=== PATIENT | male | born 1980 | race Caucasian/White ===

== ENCOUNTER → 2018-01-03 08:04 | Outpatient (CLI) | payer BC, SELFPAY ==
[2018-01-03 09:49] LABS: Hematocrit 44.8 % (40-54); Hemoglobin 14.5 g/dl (13.0-16.5); Mean Corp Hgb Conc 32.4 g/gl (32-36); Mean Corpuscular Hgb 28.9 pg (27.0-32.0); Mean Corpuscular Volume 89.4 fL (80-94); Mean Platelet Vol. 10.5 fl (6.2-12.0); Platelet Count 284 K/mm3 (150-450); RBC Distribution Width CV 13.2 % (11.6-14.6); Red Blood Count 5.01 M/mm3 (4.6-6.2); Scan Indicated on CBC? Y/N NO; White Blood Count 6.4 K/mm3 (4.4-11.0)
[2018-01-03 10:11] LABS: Microalbumin:Creatinine Ratio 5.7 mg/g CRE (<30 mg/g CRE)
[2018-01-03 10:24] LABS: AST(SGOT) 27 U/L (15-37); Alanine Aminotransfer ALT/SGPT 52 U/L (16-61); Albumin, Serum 3.7 g/dL (3.2-5.0); Alkaline Phosphatase 77 U/L (45-117); Anion Gap 9 (5-15); BUN 14 mg/dL (7-18); BUN/Creat Ratio 14.4 RATIO (10-20); Calcium,Total 8.7 mg/dL (8.5-10.1); Chloride 108 mmol/L (98-107); Creatinine, Serum 0.97 mg/dL (0.70-1.30); EST Glomerular Filtration Rate 91 mL/min (>60); Est Glom Filt Rate - Afr Amer 111 mL/min (>60); Globulin 3.7 g/dL (2.2-4.2); Glucose 96 mg/dL (74-106); Protein, Total 7.4 g/dL (6.4-8.2); Sodium Level 144 mmol/L (136-145); Thyroid Stim Hormone (TSH) 1.65 uIU/mL (0.358-3.74)
== END ==
PROVIDERS: Family Provider Preventive Medicine Occupational Medicine; PCP Preventive Medicine Occupational Medicine
DX: I10 Essential (primary) hypertension (principal)
CPT/HCPCS: 36415; 80053; 82043; 82570; 84443; 85027

== ENCOUNTER → 2019-04-08 08:28 | Outpatient (CLI) | payer BC, SELFPAY ==
[2019-04-08 08:21] VITALS: BMI 34.9
--- NOTE | 2019-04-08 08:29 | RAD_ITS ---
STUDY: X-RAY - RIGHT KNEE REASON FOR EXAM: Chronic pain. TECHNIQUE: 4 view(s) of the knee. COMPARISON: None. FINDINGS: Normal visualized distal femur. There are 2 orthopedic screws in the proximal tibial diaphysis and intramedullary scarring from previous screws in the proximal tibial diametaphysis. Normal proximal tibiofibular articulation. Normal medial femorotibial compartment. Normal lateral femorotibial compartment. Normal patellofemoral articulation. The soft tissue structures are unremarkable. RAD/Knee 4 or More Views IMPRESSION: Postoperative changes of the proximal tibia. Otherwise, unremarkable x-ray examination of the right knee. Electronically Signed: Neri Garcia MD at 9:21 EST Tel , Service support ,
--- NOTE | 2019-04-08 08:29 | RAD_ITS ---
STUDY: X-RAY - LEFT KNEE REASON FOR EXAM: Chronic pain. TECHNIQUE: 4 view(s) of the knee. COMPARISON: None. FINDINGS: Normal visualized distal femur. Normal visualized proximal tibia and fibula. Normal proximal tibiofibular articulation. Normal medial femorotibial compartment. Normal lateral femorotibial compartment. There is very mild lateral subluxation of the patella. The soft tissue structures are unremarkable. RAD/Knee 4 or More Views IMPRESSION: Very mild lateral subluxation of the patella. Otherwise, unremarkable x-ray examination of the left knee. Electronically Signed: Neri Garcia MD at 9:03 EST Tel , Service support ,
== END ==
PROVIDERS: Family Provider Preventive Medicine Occupational Medicine; PCP Preventive Medicine Occupational Medicine; Referring Provider Orthopaedic Surgery; Visit Provider Orthopaedic Surgery
DX: M25.561 Pain in right knee (principal); M25.562 Pain in left knee
CPT/HCPCS: 73564

== ENCOUNTER → 2019-04-26 16:42 | Outpatient (CLI) | payer BC, SELFPAY ==
[2019-04-08 08:21] VITALS: BMI 34.9
--- NOTE | 2019-04-26 16:43 | MRI_ITS ---
STUDY: MRI RIGHT KNEE REASON FOR EXAM: Intermittent knee pain for 14 years from trauma in 2006, prior surgery. TECHNIQUE: Standardized fat and water weighted pulse sequences were obtained in all 3 orthogonal planes. COMPARISON: Radiographs 04/08/2019. FINDINGS: Normal medial meniscus. Normal hyaline cartilage of the medial femorotibial compartment. Normal medial femoral condyle and tibial plateau. Normal medial collateral ligamentous complex (MCL). Normal distal semimembranosus, gracilis and semitendinosus tendons. Normal lateral meniscus. Normal hyaline cartilage of the lateral femorotibial compartment. Normal lateral femoral condyle and tibial plateau. Normal proximal tibiofibular articulation. Normal lateral collateral (fibular) ligament. Normal popliteus tendon. Normal biceps femoris tendon. Normal anterior cruciate ligament (ACL). Normal posterior cruciate ligament (PCL). Normal congruent patellofemoral articulation. There is low to intermediate grade chondromalacia of the medial patellar facet (T2 axial images 12, 13). Normal medial and lateral patellar retinaculum. Normal quadriceps tendon. There are postoperative changes of the patellar tendon from patellar realignment. There is postoperative scarring in Hoffa's fat pad. There is a small joint effusion. There is a thin medial patellar plica. There is postoperative scarring in the subcutis adipose space anterior to the proximal tibia. MRI/Lower Ext Joint Only (Routine) IMPRESSION: Chondromalacia patellae. Status post patellar realignment surgery. Small joint effusion. No demonstrated meniscal or ligamentous injury. Electronically Signed: Neri Garcia MD at 9:20 EST Tel , Service support ,
== END ==
PROVIDERS: Family Provider Preventive Medicine Occupational Medicine; PCP Preventive Medicine Occupational Medicine; Referring Provider Orthopaedic Surgery; Visit Provider Orthopaedic Surgery
DX: S83.206A Unspecified tear of unspecified meniscus, current injury, right knee, initial encounter (principal); M22.41 Chondromalacia patellae, right knee
CPT/HCPCS: 73721

== ENCOUNTER 2019-04-30 03:15 | Emergency (ER) | payer BC, SELFPAY ==
[2019-04-08 08:21] VITALS: BMI 34.9
[2019-04-30 03:16] VITALS: BP 97/63; PULSE 54; RESP 19; TEMP 36.8; O2SAT 92; BMI 37.3
--- NOTE | 2019-04-30 03:19 | EKG12_ITS ---
Test Reason : SYNCOPE Blood Pressure : / mmHG Vent. Rate : 053 BPM Atrial Rate : 053 BPM P-R Int : 162 ms QRS Dur : 106 ms QT Int : 426 ms P-R-T Axes : 030 029 010 degrees QTc Int : 399 ms Sinus bradycardia Otherwise normal ECG Confirmed by MYLENE PEREA, TONY ([id number]), editor index MAGO BROWN ([id number]) on 05/03/2019 11:27:18 AM Referred By: Natty Rob Confirmed By:TONY CHAKRABORTY MD
[2019-04-30] MEDS: 0.9% Normal Saline 1,000 ML 1000 ML IV (03:26)
[2019-04-30 03:27] LABS: Absolute Lymphocyte Count 2.82 X10^3/uL (0.83-4.51); Absolute Neutrophil Count 4.7 X10^3/uL (2.0-7.7); Basophil# 0.06 X10^3/uL; Basophil% 0.7 % (0-1); Eosinophil# 0.24 X10^3/uL; Eosinophils% 2.7 % (0-5); Hematocrit 45.2 % (40-54); Hemoglobin 15.1 g/dL (13.0-16.5); Lymphocyte # 2.82 X10^3/ul (4.0); Lymphocyte % 32.3 % (19-41); Mean Corp Hgb Conc 33.4 g/dL (32-36); Mean Corpuscular Hgb 29.4 pg (27.0-32.0); Mean Corpuscular Volume 88.1 fL (80-94); Mean Platelet Vol. 9.8 fl (6.2-12.0); Monocyte% 10.3 % (0-10); NRBC Flagged by Analyzer 0 % (0-5); Neutrophil # 4.66 X10^3/uL (2.7-7.7); Neutrophil % 53.4 % (47-70); Platelet Count 286 K/mm3 (150-450); RBC Distribution Width SD 42.2 fl (35.1-43.9); Red Blood Count 5.13 M/mm3 (4.6-6.2); White Blood Count 8.7 K/mm3 (4.4-11.0)
[2019-04-30 03:36] LABS: Bedside Glucose 107 mg/dL (70-110)
--- NOTE | 2019-04-30 03:38 | ED.VIS.GEN ---
History of Present Illness Chief Complaint: Syncope Informant: Patient Onset: Today Narrative: Patient was present in the emergency room with his child who is being seen as a patient. Patient presented to the nursing does state that he did not feel well. He appeared pale per nursing report. They followed him back into his child's room when patient had a syncopal episode. They estimate he was unconscious for approximately 10 seconds. Patient states he remembers feeling very hot and cold at the same time. He broke out in a sweat. He denies having chest pain or palpitations. Patient was placed on a cot and taken to room 1. Nursing staff tells me when they first hooked him up to the monitor his heart rate was in the 30s. Patient states he has had this happen once before, before he got his gallbladder out and it was associated with pain. He has not had recent chest pain or lightheadedness. - Past Medical History (1) Hypertension Status: Chronic (2) ADHD (attention deficit hyperactivity disorder) Status: Chronic Past Medical History - Allergies and Home Meds Allergies/Adverse Reactions: Allergies amoxicillin Allergy (Verified 04/30/19 03:18) swelling hands, hard to breath fentanyl Allergy (Verified 04/30/19 03:18) jittery, anxious Primary Care Physician: Dutch Orr DO [Primary Care Provider] - Prior records reviewed: Yes Surgical History: cholecystectomy Lives: With Family Smoking Status: Never smoker - Family History Maternal Family History: Reports: No pertinent history Paternal Family History: Reports: No pertinent history Review of Systems General: Denies: Chills, Fever Eyes: Denies: Visual changes - bilaterally ENT: Denies: Bilateral ear pain Cardiovascular: Denies: Chest pain, Palpitations Respiratory: Denies: Dyspnea, Cough Gastrointestinal: Denies: Abdominal pain, Nausea, Vomiting, Diarrhea Musculoskeletal: Denies: Swelling, Extremity Pain Skin: Denies: Rash Neurological: Denies: Headache, Weakness Hematologic: Denies: Easy bruising Allergy: Denies: Uticaria Physical Exam Vital Signs/Narrative: Vital Signs Temp Pulse Resp BP Pulse Ox 04/30/19 03:16 98.2 F 54 L 19 H 97/63 92 Inital Vital Signs reviewed: Yes General: Well nourished, Well developed Head: Normocephalic ENT: Moist mucous membranes Cardiovascular: Bradycardia Respiratory: No distress, CTA bilaterally Abdomen: Soft, Nontender, Hypoactive bowel sounds Extremities: Nontender Skin: Diaphoresis, Pallor Neurological: Alert, Oriented x3 Psychological: Normal affect Diagnostic/Tx/Re-eval Laboratory Results 04/30/19 04/30/19 04/30/19 03:20 03:20 03:29 WBC 8.7 RBC 5.13 Hgb 15.1 Hct 45.2 MCV 88.1 MCH 29.4 MCHC 33.4 RDW Std Deviation 42.2 RDW Coeff of Graciela 13.0 Plt Count 286 MPV 9.8 Immature Gran % (Auto) 0.600 Neut % (Auto) 53.4 Lymph % (Auto) 32.3 [place] % (Auto) 10.3 H Eos % (Auto) 2.7 Baso % (Auto) 0.7 Absolute Neuts (auto) 4.7 Absolute Lymphs (auto) 2.82 Nucleated RBC % 0 Sodium 139 Potassium 3.5 Chloride 105 Carbon Dioxide 26.0 Anion Gap 8 BUN 22 H Creatinine 1.07 Estim Creat Clear Calc 94.76 Est GFR (MDRD) Af Amer 98 Est GFR (MDRD) Non-Af 81 BUN/Creatinine Ratio 20.6 H Glucose 118 H Calcium 8.7 POC Glucose 107 - Medical Decision Making Patient was given a liter of IV fluids here. Blood pressure has increased into the 130s systolic. Patient remains bradycardic with heart rate in the 50s. Patient's color is much improved. He is able to get up and ambulate in the department without difficulty. At this time patient be discharged with family. His symptoms are consistent with vasovagal syncope. He is encouraged to return for worsening symptoms or concerns. He is instructed to follow-up with his physician within the next week. ED Disposition - Plan for ED Patient: Disposition: Home or Assisted Living Diagnosis: Vasovagal syncope Instructions: SYNCOPE, Vasovagal Referrals: Dutch Orr DO [Primary Care Provider] - As soon as possible
[2019-04-30 03:39] LABS: Anion Gap 8 (5-15); BUN 22 mg/dL (7-18); BUN/Creat Ratio 20.6 RATIO (10-20); Calcium,Total 8.7 mg/dL (8.5-10.1); Chloride 105 mmol/L (98-107); Creatinine, Serum 1.07 mg/dL (0.70-1.30); EST Glomerular Filtration Rate 81 mL/min (>60); Est Glom Filt Rate - Afr Amer 98 mL/min (>60); Estimated Creatinine Clearance 94.76 ml/min; Glucose 118 mg/dL (74-106); Potassium 3.5 mmol/L (3.5-5.1); Sodium Level 139 mmol/L (136-145)
[2019-04-30 05:04] VITALS: BP 143/93; PULSE 52; RESP 16; O2SAT 95
== END 2019-04-30 05:10 | disposition home or self-care (01) ==
PROVIDERS: Emergency Provider Emergency Medicine; Family Provider Preventive Medicine Occupational Medicine; PCP Preventive Medicine Occupational Medicine
DX: R55 Syncope and collapse (principal); I10 Essential (primary) hypertension; F90.9 Attention-deficit hyperactivity disorder, unspecified type; Z79.899 Other long term (current) drug therapy
CPT/HCPCS: 80048; 82962; 85025; 93005; 96360; 96361; 99285; J7030; A4216

== ENCOUNTER 2019-08-11 15:22 | Observation (INO) | payer BC, SELFPAY ==
[2019-07-20 08:22] VITALS: BMI 37.3
--- NOTE | 2019-07-20 08:47 | HP_ITS ---
I have re-examined the patient. There are no clinical changes since date of exam. Intake Vital Signs 07/20/19 BMI 37.3 Intake Visit Reasons: RIGHT KNEE Is patient in pain?: Yes Allergies amoxicillin Allergy (Verified 07/20/19 08:21) swelling hands, hard to breath fentanyl Allergy (Verified 07/20/19 08:21) jittery, anxious venom-honey bee Allergy (Verified 07/20/19 08:21) Anaphylaxis Medications Lisdexamfetamine Dimesylate [Vyvanse] 60 mg PO DAILY 07/06/16 [History Confirmed 07/20/19] Amlodipine [Norvasc] 10 mg PO DAILY 04/30/19 [History Confirmed 07/20/19] Bisoprolol/Hydrochlorothiazide [Bisoprolol-Hctz 2.5-6.25 mg Tb] 1 ea PO DAILY 04/30/19 [History Confirmed 07/20/19] Cholecalciferol (VIT D3) [Vitamin D] 1,000 unit PO DAILY 04/30/19 [History Confirmed 07/20/19] Loratadine [Claritin] 10 mg PO DAILY 04/30/19 [History Confirmed 07/20/19] Meloxicam 15 mg PO DAILY 04/30/19 [History Confirmed 07/20/19] PFSH Social History (Updated 07/20/19 @ 10:[address] Natty Rob DO) Smoking Status: Never smoker HPI RIGHT KNEE: Surgical H&P: Yes Details: Parts of this documentation were recorded by a scribe, this documentation accurately reflects the service provided and the decisions made by me, Dr. Natty Rob DO 07/20/1918. EITAN VOGEL is a 39 year old M here today for right knee pain. He continues to have pain over his anterior knee. Patient has popping and swelling. Patient has knee instability. He denies any locking. Patient had an injection on 05/13/19 which was helpful for a few weeks. He has a knee brace which he wears while wrestling. Denies numbness, tingling or other associated symptoms. He had an MRI which is here for review. Patient would like to discuss his next options. ROS Musc Reports joint pain, Reports joint swelling Skin/Breast Reports system reviewed and no additional complaints, except as docu Neuro Yes system reviewed and no additional complaints, except as docu No rales rhonchi wheezing, no abdominal pain, no audible bruits Positive patellar apprehension lateral tilting painful flexion at extension underneath the kneecap localized Assessment & Plan Problems 1. 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 Reviewed the post op restrictions of nwb for 6wks Reviewed the pre-operative plans with the patient. Risks and benefits of the procedure were fully explained, including but not limited to infection, neurovascular injury, continued pain, arthritis, stiffness, need for further surgery, re-injury, DVT, PE, general risks of anesthesia, and loss of limb or life. The patient understands all the risks and does wish to proceed with written consent. Follow up post op or sooner if pain, swelling, numbness or associated symptoms, or concerns develop. All questions answered. Patient in agreement of plan. 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
[2019-08-11] VITALS (12 sets, daily range): BP systolic 123–147; BP diastolic 72–86; PULSE 49–80; RESP 16–18; TEMP 36.3–36.9; O2SAT 89–97; BMI 36.4
[2019-08-11] MEDS: Lactated Ringers 1,000 ML 100 ML IV ×2 (09:43→16:06)
--- NOTE | 2019-08-11 10:45 | FORE_PTH ---
PATIENT: EITAN VOGEL LOC: MS3 U#:[id number] AGE/SX: 39/M ROOM: GA312 RE08/11/[address]: Dr. Natty Rob DO : 1980 BED: 1 DIS: 08/12/2019 SPEC #: [id number] RECD: 08/11/19 16:19 STATUS: QUINN JACQUELINE #: [id number] MECCA: 08/11/19 10:[address]: Natty Rob DEPT: SURGICAL PATHOLOGY RECD BY: Steve Barrientos ENTERED: 08/12/19 06:59 SP TYPE: FOREIGN B GENEVA DR: Dr. 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 LEIGH:[place] 08/12/19 GROSS DESCRIPTION Received in fixative is one container labeled with the patient's name and designated partial screw from right knee. The specimen consists of a portion of screw measuring 0.7 cm in length and 0.2 cm in diameter. A round head is noted on the top which measures 0.5 cm in diameter. A round depression is also noted on the top of the screw. The specimen is for gross identification only. / LEIGH:[place] 08/12/19 CPT: 02976
--- NOTE | 2019-08-11 12:00 | RAD_ITS ---
STUDY: X-RAY - RIGHT KNEE REASON FOR EXAM: Male, 39 years old. PAIN, TIBIAL TUBERCLE OSTEOTOMY, ARTHROSCOPY TECHNIQUE: 2 Intraoperative view(s) of the knee. Intraoperative fluoroscopy utilized for 23.04 seconds. COMPARISON: None. FINDINGS: Intraoperative fluoroscopy utilized during tibial tubercle osteotomy. RAD/Knee 1 or 2 Views IMPRESSION: Intraoperative fluoroscopy. Electronically Signed: Apolinar Ram MD at 23:41 EDT , Service support ,
--- NOTE | 2019-08-11 12:09 | DCINST_ITS ---
Discharge Diet: No Restrictions - cpm 0-30 up to 6 hours daily, may advance to 45degrees as tolerated, follow up on friday with [facility] for dressing change and brace adjustment, nwb right leg, crutches with brace locked in extension, call with concerns Discharge Activity: May Not Drive May shower in (days): 1 Ice area for (Minutes): 20 - Every hour while awake. Weight Bearing Status: Weight bearing as tolerated Keep extremity elevated above heart level: Operative Extremity Call your doctor if your incision/area has: Continuous Slow Oozing, Sudden Increased Bleeding, Increased Pain/ Swelling, Increased Redness, Foul Smelling Discharge Call your doctor if you observe: Fever of 101 or Higher, Coldness, Increased Pain, Numbness or Tingling, Change in Color, Calf discomfort Allergies/Adverse Reactions: Allergies amoxicillin Allergy (Verified 08/04/19 11:19) swelling hands, hard to breath fentanyl Allergy (Verified 08/04/19 11:19) jittery, anxious venom-honey bee Allergy (Verified 08/04/19 11:19) Anaphylaxis Medications to take at Discharge Lisdexamfetamine Dimesylate [Vyvanse] 60 mg PO DAILY 07/06/16 Amlodipine [Norvasc] 10 mg PO DAILY 04/30/19 Bisoprolol/Hydrochlorothiazide [Bisoprolol-Hctz 2.5-6.25 mg Tb] 1 ea PO QHS 04/30/19 Cholecalciferol (VIT D3) [Vitamin D] 2,000 unit PO DAILY 04/30/19 Loratadine [Claritin] 10 mg PO DAILY 04/30/19 Oxycodone HCl/Acetaminophen [Percocet 5/325] 1 - 2 tab PO Q6H PRN PRN 5 Days #28 tab 08/11/19 The following prescriptions were given: Oxycodone HCl/Acetaminophen [Percocet 5/325] 1 - 2 tab PO Q6H PRN PRN 5 Days #28 tab PRN Reason: Pain Transmission Status: Sent to [facility] Primary Care Physician: Dutch Orr DO [Primary Care Provider] - Test Results: Test results from this visit will be discussed in further detail at your follow- up appointment, if applicable. Please Follow Up With: Natty Rob DO - [phone]
--- NOTE | 2019-08-11 12:09 | OP.PCM_ITS ---
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 Patient has an MRI confirms chondromalacia of his patella. Risk benefits and alternatives were discussed with patient. Risk include but not limited to blood loss, blood clot, infection, neurovascular, failure procedure, loss of life and loss of limb. Patient is aware would like proceed with right knee arthroscopy chondroplasty possible to tibial tubercle osteotomy repair as indicated Operative note Patient seen and examined preoperative holding area. Right knee was marked. Patient brought to the operating room placed supine on the operating table. Signed, anesthesia, and antibiotics were administered. The right leg was prepped and draped in usual sterile fashion with a tourniquet around her upper thigh to his upper thigh. All bony promises well-padded SCDs placed on his contralateral limb. Timeout was performed. We marked our incisions for anterior lateral and anterior medial plate for placement as well as our typical tibial tubercle osteotomy. The right leg was then elevate exsanguinated tourniquet was raised her pressure of 275 torr. Timeout was performed. We then created an anterior lateral portal and began our diagnostic arthroscopy. We c reated an anterior medial portal under direct visualization. The medial femoral condyle medial tibial plateau lateral femoral condyle lateral tibial plateau both the medial and lateral meniscus were both in intact and stable probing. The ACL and PCL were present within the notch. There were grade 2 changes on the medial and central facets of the patella and more distal more inferiorly and the patella did track quite laterally over 25 to 30% was overhanging laterally off of the lateral femoral condyle. We then performed a lateral release under standard technique and then deflated the did decrease the irrigation in order to coagulate coagulate any bleeders which there was which we did at that time. We then moved our open tibial tubercle osteotomy. We then made about a 7 cm cyst centimeter incision over the typical tibial tubercle extending from the inferior pole of the patella about a centimeter and then extending it distally. We then dissected down through scar tissue down to the patella tendon found the patella tendon on either border dissected down to its insertion on the tibial tubercle and then released an elevated tibial tubercle on the anterior lateral as well as anterior medial compartments of sharply off of the bone combination of an ablator and a Paz. We then marked out our cut angle with Arthrex system breakable guidewires. We then used a 10 oscillating saw to perform our osteotomy. We are unable to complete it distally as there was a screw in the way from his previous surgery this was removed and with a combination of an osteotome and a screw removal set. We sent the screw to pathology for further evaluation. We then were able to move the tibial tubercle both anteriorly and medially. We then placed 245 partially-threaded screws after drilled properly with a guidewire and measured appropriately. We then irrigated the area with copious nonsterile saline we placed Lennie quickset calcium cement into the defect created lateral please note that we moved laterally we moved it from lateral to medial about a centimeter and about a centimeter anteriorly. Quite pleased with the result. Again we then placed the cement after irrigated with copious muscle sterile saline we closed loosely closed loosely the anterolateral anteromedial compartments. We then let the tourniquet down to ensure there is no further bleeding prior to closing the compartments was there was no acute bleeding. We then coagulated bleeders that we did see subcutaneously. The skin was closed subcuticular with 2-0 Vicryl and the skin with 4-0 interrupted nylons the portal s were closed with nylon stitches. Sterile dressings were applied patient was placed in a Ruiz wrap from the toes to his leg. And a Garrett stocking was placed on his lower extremity are in his bed to be placed on tomorrow. Right lower extremity was neurovascular intact Called postoperative To be admitted for observation to for antibiotics and to evaluate and watch for compartment syndrome and for pain medication for pain meds Call with increased pain numbness tingling or other issues arise We will discharge tomorrow CPM as tolerated Sherri disclaimer
[2019-08-11] MEDS: Mupirocin Ointment 22gm Tube 1 APPLIC (14:56)
[2019-08-11] MEDS: Epinephrine (1 mg/ml) 1 MG/ML VIAL (14:56)
[2019-08-11] MEDS: HYDROcodone Bitartrate/Apap 5/325 Tablet PO (19:55)
[2019-08-12 01:30] VITALS: BP 143/79; PULSE 62; RESP 18; TEMP 36.5; O2SAT 94
[2019-08-12] MEDS: HYDROcodone Bitartrate/Apap 5/325 Tablet PO ×2 (01:54→09:13)
[2019-08-12] MEDS: Lactated Ringers 1,000 ML 100 ML IV (02:43)
[2019-08-12 06:00] VITALS: BP 133/70; PULSE 55; RESP 18; TEMP 36.6; O2SAT 94
[2019-08-12 07:45] VITALS: O2SAT 94
[2019-08-12 10:13] VITALS: BP 142/70; PULSE 63; RESP 18; TEMP 36.9; O2SAT 92
--- NOTE | 2019-08-12 11:20 | CASEMGMT ---
NICOLASA SWANSON Face to Face with patient for initial transition planning/care coordination assessment. NICOLASA SWANSON introduced self and role at [facility]. Patient lying in bed, alert and oriented, at bedside. Patient willing to participate in assessment and is able to answer all questions appropriately. Care providers, pharmacy, and demographics verified. Patient wishes to discharge home, denies need for home health at this time. Patient states he has no further needs or concerns at this time. CM to follow for discharge planning needs that may arise. PCP: Dom[facility] Specialists: [facility] Pharmacy: [facility] Insurance: [place] Prescription Benefit: yes Living Will/HPOA: none LNOK: Living Arrangements: Patient lives with in 2 story home, railing to second floor for bedroom. Patient independent prior to surgery. Transportation: DME/HHC: Patient has crutches, will need walker. NICOLASA SWANSON called surgeon office and requested script for front wheeled walker. Patient and requesting script and will fill at [facility] on their own. Script received and given to patient. Disposition Plan: Patient to discharge home with family support and follow-up plans in place. Sanna DELAROSAN, RN, CM
--- NOTE | 2019-08-13 10:46 | PN.ORTHO_ITS ---
Subjective: eval done 08/11 patient seen and examined at [facility]. no complaints other than slight numbness of left le, but able to move knee, ankle, foot, toes, an life leg /straight leg raise- no calf pain, sob, cp, fever, chills or other constitutional symptoms. tolerated POs, on antibiotics, up wiht assistance, currently in CPM. - Physical Exam Vitals/I&O's: Vital Signs Temp Pulse Resp BP Pulse Ox 98.5 F 63 18 142/70 H 92 08/12/19 10:13 08/12/19 10:13 08/12/19 10:13 08/12/19 10:13 08/12/19 10:13 Oxygen Flow Rate (L/min) 2 Oxygen Delivery Method Room Air Weight: 246 lb 14.684 oz Body Mass Index (BMI) 36.4 Finger Stick Blood Glucose 107 Intake and Output for Last 24 Hours 08/11/19 08/12/19 08/13/19 23:59 23:59 23:59 Intake Total 2551.67 / 2551.67 1547.33 / 1547.33 Output Total 675 / 675 1075 / 1075 Balance 1876.67 / 1876.67 472.33 / 472.33 General: Alert, Oriented x3, Cooperative HEENT: Atraumatic, PERRLA, EOMI, Normocephalic Neck: Supple, No JVD, Negative Carotid Bruits Lungs: Clear to auscultation, Normal air movement Cardiovascular: Regular rate, No murmurs Abdomen: Bowel Sounds Present, Soft, Non Tender Extremities: No edema, Capillary Refill Less than 3 Seconds Skin: No rashes, No breakdown Musculoskeletal: Tenderness - at incision site, no calf pain, neg homans, sensation intact to pinching, arom of toes, ankle, knee and hip intact Neurological: Cranial nerves II-XII grossly intact Psych/Mental Status: Normal Affect, Appropriate Medical Necessity - Tobacco Use Smoking Status: Never smoker Tobacco Use: Non-smoker Assessment/Plan All Active Problems Hypertensive urgency (Acute) Biliary colic (Acute) Cholelithiasis (Acute) pod 1 s/p right knee arthroscopy tto nwb right leg may d/c when antibiotics complete tourniquet may have caused slight decrease in sensation but intact to pain in all dermatomes when i pinch/move compts soft, sgi otherwise follow up on friday for dressing change and brace adjustment cpm coming to his house
== END 2019-08-12 12:56 | disposition home or self-care (01) ==
LOC: SDC 16:02 → MS3 16:02
PROVIDERS: Admitting Provider Orthopaedic Surgery; PCP Preventive Medicine Occupational Medicine; Referring Provider Orthopaedic Surgery; Visit Provider Orthopaedic Surgery
PROC: (CPT 29870; principal; 2019-08-11 10:20)
DX: M22.41 Chondromalacia patellae, right knee (principal); M25.369 Other instability, unspecified knee; M79.89 Other specified soft tissue disorders; F90.9 Attention-deficit hyperactivity disorder, unspecified type; Z79.899 Other long term (current) drug therapy; I10 Essential (primary) hypertension; G47.30 Sleep apnea, unspecified
CPT/HCPCS: 01400; 20680; 27705; 29877; 73560; 76000; 88300; 96361; 96365; 96366; 97161; 97530; 99218; 99251; C1713; J7120; G0378; G0379; G0463; J2405

== ENCOUNTER → 2019-08-24 08:24 | Outpatient (CLI) | payer BC, SELFPAY ==
[2019-08-24 08:12] VITALS: BMI 36.4
--- NOTE | 2019-08-24 08:25 | RAD_ITS ---
STUDY: X-RAY - RIGHT KNEE REASON FOR EXAM: Postoperative follow-up of proximal anterior tibial osteotomy. TECHNIQUE: 3 view(s) of the knee. COMPARISON: Radiographs 04/08/2019 and intraoperative images 08/11/2019. FINDINGS: Normal visualized distal femur. There are postoperative changes of the anterior aspect of the proximal tibia remaining in satisfactory position with orthopedic screws. Normal proximal tibiofibular articulation. Normal medial femorotibial compartment. Normal lateral femorotibial compartment. Normal patellofemoral articulation. There is anterior soft tissue swelling. RAD/Knee 4 or More Views IMPRESSION: No significant change of proximal anterior tibial osteotomy. Electronically Signed: Neri Garcia MD at 8:55 EDT Tel , Service support ,
== END ==
PROVIDERS: PCP Preventive Medicine Occupational Medicine; Referring Provider Orthopaedic Surgery; Visit Provider Orthopaedic Surgery
DX: M25.561 Pain in right knee (principal)
CPT/HCPCS: 73564

== ENCOUNTER → 2019-09-21 10:00 | Outpatient (CLI) | payer BC, SELFPAY ==
[2019-08-24 08:12] VITALS: BMI 36.4
--- NOTE | 2019-09-21 10:02 | RAD_ITS ---
STUDY: X-RAY - RIGHT KNEE REASON FOR EXAM: Follow-up recent knee surgery. TECHNIQUE: 4 view(s) of the knee. COMPARISON: Radiographs 08/24/2019. FINDINGS: Normal visualized distal femur. There are postoperative changes of the anterior aspect of the proximal tibia remaining in satisfactory position with little interval change. Normal proximal tibiofibular articulation. Normal medial femorotibial compartment. Normal lateral femorotibial compartment. Normal patellofemoral articulation. There is anterior soft tissue swelling. RAD/Knee 3 Views IMPRESSION: Little interval change of the anterior tibial osteotomy. Electronically Signed: Neri Garcia MD at 11:16 EDT Tel , Service support ,
== END ==
PROVIDERS: PCP Preventive Medicine Occupational Medicine; Referring Provider Orthopaedic Surgery; Visit Provider Orthopaedic Surgery
DX: M22.41 Chondromalacia patellae, right knee (principal); Z47.89 Encounter for other orthopedic aftercare
CPT/HCPCS: 73562

== ENCOUNTER 2019-10-05 16:00 | Outpatient (RCR) | payer BC, SELFPAY ==
[2019-08-24 08:12] VITALS: BMI 36.4
--- NOTE | 2019-08-27 12:16 | HP.PTEVAL ---
Patient's Visit Information EITAN VOGEL is a 39 year old M referred to Physical Therapy by Dr. Natty Rob DO with a diagnosis of R knee TTO, DOS: 08/11/19. Date of Evaluation: 08/27/19 Physical Therapist: Ángel Islas DPT - Visit Plan Frequency: 2x /Week Duration: 8-12 weeks Plan: Start with quad sets, AROM of R knee progress per protocol. - Subjective Subjective: Pt. is here today for his initial evaluation S/P TTO surgery on 08/11/19. Pt. reports that this is his 4 surgery on this knee. Pt. reports having increased pain this time after taking a bad step and having a crunching feel. Pt. reports ebign compliant with his TROM brace. Pt. has been doing heel slides and ankle pumps at home. Pt. is NWBing on her RLE. No N/T, no calf pain, no fever and no chills. Pt. is hopeful to get back to all recreational activities without limiation or incerase in symptoms. 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 - Pain R knee Pain Intensity (Out of 10): 3 Pain Intensity Range: 0, 6 - Objective POSTURE: pt. has good posture ins tance. Proper NWbing on RLE. Pt. has good use of crutches in stance. PALAPTION: Pt. had good healing incision, no sigs of infection. Pt. has negative homans sign. No calf swelling. He does have non pitting swelling at knee and inferior to patella. NEURO: normal throughout. ROM: R knee: PROM 0-0-80deg. AROM 0-3-78deg. No pain noted with ROM, increase in stiffness noted in Knee with flexion. MMT: hip- flexon 4/5, abd 4+/5, exten 4+/5; did not test knee strength. GAIT: Pt. has normal gait pattern with B axillary crutches. Good NWBing on RLE. - Goals Goal 1:: LTG: Pt. to be I with HEP. Goal Time Frame: 2-4 Weeks Goal 2:: LTG: PT. to get to full active ROM without increase in symptoms. Goal Time Frame: 4-6 Weeks Goal 3:: LTG: Pt. to have increased strength of RLE by 1/2 grade. Goal Time Frame: 6-8 Weeks Goal 4:: STG: Pt to have SLR x20 without extensor lag. Goal Time Frame: 2-4 Weeks Goal 5:: STG: Pt. to have minimal swelling in RLE. Goal Time Frame: 2-4 Weeks Goal 6:: LTG: PT. to normal gait pattern without increase in symptoms. Goal Time Frame: 6-8 Weeks - Rehabilitation Potential Physical Therapy Diagnosis: Pt. has signs and symptom cosistent with tibial tuberosity osteotomy. Pt. has marked edema, hypombility, weakness and difficulty with gait. Pt. would benefit from PT to work on above limiattions progressing via physician protocol. Rehabilitation Potential: Excellent - Anticipated Interventions Patient/Client Instruction: Educate patient on: Condition, Plan of Care, Risk Factors, Benefits of Fitness Program For the Purpose of:: To improve health and function, To foster healthy habits, To improve decision making, To facilitate caregiver knowledge, To improve self management, To prevent re-injury, To improve ability to perform tasks related to life management, To improve tolerance to ADL's Therapeutic Exercise to Include: Strength training, Power training, Endurance training, Balance training, Body mechanics, Postural training, Flexibilty training, Gait and locomotor training, Passive ROM, Active ROM, Dynamic Lumbar Stabilization For the Purpose of:: To decrease pain, To decrease swelling/inflammation, To increase ROM, To improve nutrient delivery to tissue, To increase oxygenation perfusion, To improve muscle performance and motor function, To improve ability to perform ADL's, To improve gait and locomotor functions, To improve health of tissue, To decrease soft tissue restriction, To increase flexibility/ROM, To improve endurance IF ES: Yes Cryotherapy (ice pack, ice massage): Yes Thermo therapy (hot pack): Yes Vasopneumatic device: Yes For the Purpose of:: To decrease pain, To decrease swelling/inflammation, To increase ROM Thank you for the opportunity to evaluate your patient. For Medicare and Medicare HMO plans, please review the plan of care and approve it. It will need to be FAXED BACK to us at [phone] for Medicare purposes. For Medicare only, by signing this I certify the plan of care. Please let me know if there are questions or concerns regarding this plan of care. Physician Signature: Date:
--- NOTE | 2019-09-16 09:44 | HP.PTREVAL ---
Dr. Natty Rob, DO, It has been my pleasure to treat EITAN VOGEL over the last 5 visits for R knee TTO, DOS: 08/11/19. Please see the progress note below for an update on the physical therapy plan of care! Subjective: Pt. reports being a little sore today, but not bad. Pt. reports being hEP compliant. Arrives today with crutches with proper Wbing. Objective/Function: Pt. is doing well. Pt. has 138deg of flexion, fully straight today. Pt. had mild pinching at end range fleixon, but no pain with rest of movements. Pt. magaña progressing with strengthening as expected. He was able to negotiate steps with crutches today without issues. Pt. to follow up with physician next week. Doing very well. Plan Plan: Start with quad sets, AROM of R knee progress per protocol. Goals Goal 1:: LTG: Pt. to be I with HEP. Goal Time Frame: 2-4 Weeks Goal 2:: LTG: PT. to get to full active ROM without increase in symptoms. Goal Time Frame: 4-6 Weeks Goal 3:: LTG: Pt. to have increased strength of RLE by 1/2 grade. Goal Time Frame: 6-8 Weeks Goal 4:: STG: Pt to have SLR x20 without extensor lag. Goal Time Frame: 2-4 Weeks Goal 5:: STG: Pt. to have minimal swelling in RLE. Goal Time Frame: 2-4 Weeks Goal 6:: LTG: PT. to normal gait pattern without increase in symptoms. Goal Time Frame: 6-8 Weeks Anticipated Interventions Patient/Client Instruction: Educate patient on: Condition, Plan of Care, Risk Factors, Benefits of Fitness Program For the Purpose of:: To improve health and function, To foster healthy habits, To improve decision making, To facilitate caregiver knowledge, To improve self management, To prevent re-injury, To improve ability to perform tasks related to life management, To improve tolerance to ADL's Therapeutic Exercise to Include: Strength training, Power training, Endurance training, Balance training, Body mechanics, Postural training, Flexibilty training, Gait and locomotor training, Passive ROM, Active ROM, Dynamic Lumbar Stabilization For the Purpose of:: To decrease pain, To decrease swelling/inflammation, To increase ROM, To improve nutrient delivery to tissue, To increase oxygenation perfusion, To improve muscle performance and motor function, To improve ability to perform ADL's, To improve gait and locomotor functions, To improve health of tissue, To decrease soft tissue restriction, To increase flexibility/ROM, To improve endurance IF ES: Yes Cryotherapy (ice pack, ice massage): Yes Thermo therapy (hot pack): Yes Vasopneumatic device: Yes For the Purpose of:: To decrease pain, To decrease swelling/inflammation, To increase ROM Please do not hesitate to contact me at [phone] by phone or if you have questions or concerns regarding this new plan of care! Sincerely, TIFFANIE FowlerT
--- NOTE | 2019-09-21 09:36 | HP.PTREVAL ---
Dr. Natty Rob, DO, It has been my pleasure to treat EITAN VOGEL over the last 6 visits for R knee TTO, DOS: 08/11/19. Please see the progress note below for an update on the physical therapy plan of care! Subjective: Pt. to see physician today. pt. is hopeful to go back to work tomorrow and increased WBing. Pt. reports mild soreness in knee today I might have slep on it wrong. Objective/Function: Pt. is doing very well. Full ROM, his strength in progressing nicely. Pt. is to see physician later today. ROM: 0-0-137deg,. gait with crutches in normal--- pt. hopeful to progress WBiong and go back to work. He still has some soreness, but minimal. Overall doing well. Plan Plan: COnt. to progress per protocol. Pt. to see physician today. Goals Goal 1:: LTG: Pt. to be I with HEP. Goal Time Frame: 2-4 Weeks Goal 2:: LTG: PT. to get to full active ROM without increase in symptoms. Goal Time Frame: 4-6 Weeks Goal 3:: LTG: Pt. to have increased strength of RLE by 1/2 grade. Goal Time Frame: 6-8 Weeks Goal 4:: STG: Pt to have SLR x20 without extensor lag. Goal Time Frame: 2-4 Weeks Goal 5:: STG: Pt. to have minimal swelling in RLE. Goal Time Frame: 2-4 Weeks Goal 6:: LTG: PT. to normal gait pattern without increase in symptoms. Goal Time Frame: 6-8 Weeks Anticipated Interventions Patient/Client Instruction: Educate patient on: Condition, Plan of Care, Risk Factors, Benefits of Fitness Program For the Purpose of:: To improve health and function, To foster healthy habits, To improve decision making, To facilitate caregiver knowledge, To improve self management, To prevent re-injury, To improve ability to perform tasks related to life management, To improve tolerance to ADL's Therapeutic Exercise to Include: Strength training, Power training, Endurance training, Balance training, Body mechanics, Postural training, Flexibilty training, Gait and locomotor training, Passive ROM, Active ROM, Dynamic Lumbar Stabilization For the Purpose of:: To decrease pain, To decrease swelling/inflammation, To increase ROM, To improve nutrient delivery to tissue, To increase oxygenation perfusion, To improve muscle performance and motor function, To improve ability to perform ADL's, To improve gait and locomotor functions, To improve health of tissue, To decrease soft tissue restriction, To increase flexibility/ROM, To improve endurance IF ES: Yes Cryotherapy (ice pack, ice massage): Yes Thermo therapy (hot pack): Yes Vasopneumatic device: Yes For the Purpose of:: To decrease pain, To decrease swelling/inflammation, To increase ROM Please do not hesitate to contact me at [phone] by phone or if you have questions or concerns regarding this new plan of care! Sincerely, TIFFANIE FowlerT
== END 2019-10-05 19:00 | disposition home or self-care (01) ==
LOC: PT 16:00
PROVIDERS: PCP Preventive Medicine Occupational Medicine; Referring Provider Orthopaedic Surgery; Visit Provider Orthopaedic Surgery
DX: Z98.890 Other specified postprocedural states (principal)
CPT/HCPCS: 97110; 97140; 97161

== ENCOUNTER → 2021-10-27 | Outpatient (CLI) | payer BC, SELFPAY ==
[2021-10-27 08:42] LABS: ALB/GLOB Ratio 0.9 RATIO (0.9-2.4); AST(SGOT) 23 U/L (15-37); Alanine Aminotransfer ALT/SGPT 50 U/L (16-61); Albumin, Serum 3.6 g/dL (3.2-5.0); Alkaline Phosphatase 79 U/L (45-117); Anion Gap 4 (5-15); BUN 13 mg/dL (7-18); BUN/Creat Ratio 13.7 RATIO (10-20); Calcium,Total 8.8 mg/dL (8.5-10.1); Chloride 106 mmol/L (98-107); Creatinine, Serum 0.95 mg/dL (0.70-1.30); EST Glomerular Filtration Rate 93 mL/min (>60); Est Glom Filt Rate - Afr Amer 112 mL/min (>60); Globulin 3.9 g/dL (2.2-4.2); Glucose 111 mg/dL (74-106); Potassium 3.9 mmol/L (3.5-5.1); Protein, Total 7.5 g/dL (6.4-8.2); Sodium Level 138 mmol/L (136-145)
[2021-10-27 08:45] LABS: Microalbumin,Random Urine 10.2 mg/L (NO RANGE EST.)
== END | disposition home or self-care (01) ==
LOC: LAB 07:49
PROVIDERS: PCP Preventive Medicine Occupational Medicine; Visit Provider Preventive Medicine Occupational Medicine
DX: I10 Essential (primary) hypertension (principal)
CPT/HCPCS: 36415; 80053; 82043

== ENCOUNTER → 2022-09-17 | Outpatient (CLI) | payer BC, SELFPAY ==
--- NOTE | 2022-09-17 06:33 | MRI_ITS ---
INDICATION: pain EXAMINATION: MRI - MR Spine Cervical W/O Contrast TECHNIQUE: Multiplanar and multisequence MR images of the cervical spine were performed. IV Contrast Dosage and Agent: None. COMPARISON: None. FINDINGS: VERTEBRAE: Normal vertebral bodies and posterior elements. VERTEBRAL ALIGNMENT: Normal, including the craniocervical junction and cervicothoracic junction. No spondylolisthesis. There is preservation of the normal cervical lordosis. CERVICAL SPINAL CORD: Unremarkable in signal and morphology. C2/C3: Normal disc height and morphology. Normal spinal canal and neuroforamina. C3/C4: Normal disc height and morphology. Normal spinal canal and neuroforamina. C4/C5: Normal disc height and morphology. Normal spinal canal and neuroforamina. C5/C6, C6/C7: Endplate spondylosis. Central and paracentral disc bulge. Degenerative changes of the bilateral facet joints and uncovertebral joints. Moderate narrowing of the central canal and severe right intervertebral neural foraminal stenosis. C7/T1: Normal disc height and morphology. Normal spinal canal and neuroforamina. NECK SOFT TISSUES: No prevertebral soft tissue swelling. There is no cervical adenopathy. MRI/Spine Cervical (Routine) IMPRESSION: C5/C6, C6/C7: Moderate narrowing of the central canal and severe right intervertebral neural foraminal stenosis. Electronically Signed: Quang Valadez MD at 8:01 EDT ,
== END | disposition home or self-care (01) ==
PROVIDERS: PCP Preventive Medicine Occupational Medicine; Referring Provider Orthopaedic Surgery; Visit Provider Orthopaedic Surgery
DX: M54.12 Radiculopathy, cervical region (principal)
CPT/HCPCS: 72141

== ENCOUNTER 2022-10-29 05:20 | Inpatient (IN) | payer BC, SELFPAY ==
--- NOTE | 2022-10-16 07:19 | EKG12_ITS ---
Test Reason : PRE OP Blood Pressure : / mmHG Vent. Rate : 052 BPM Atrial Rate : 052 BPM P-R Int : 140 ms QRS Dur : 090 ms QT Int : 458 ms P-R-T Axes : 040 050 034 degrees QTc Int : 425 ms Sinus bradycardia Otherwise normal ECG Confirmed by MYLENE PEREA, TNOY ([id number]), multimedia editor DAMIEN HUDDLESTON ([id number]) on 10/17/2022 9:56:12 AM Referred By: SOLANGE Confirmed By:TONY CHAKRABORTY MD
[2022-10-16 07:58] LABS: Absolute Lymphocyte Count 1.93 X10^3/uL (0.83-4.51); Absolute Neutrophil Count 4.4 X10^3/uL (2.0-7.7); Basophil# 0.04 X10^3/uL; Basophil% 0.6 % (0-1); Eosinophil# 0.12 X10^3/uL; Eosinophils% 1.7 % (0-5); Hematocrit 48.8 % (40-54); Hemoglobin 15.8 g/dL (13.0-16.5); Lymphocyte # 1.93 X10^3/ul (0.83-4.51); Lymphocyte % 27.1 % (19-41); Mean Corp Hgb Conc 32.4 g/dL (32-36); Mean Corpuscular Hgb 28.5 pg (27.0-32.0); Mean Corpuscular Volume 88.1 fL (80-94); Mean Platelet Vol. 9.8 fl (6.2-12.0); Monocyte# 0.64 X10^3/uL; NRBC Flagged by Analyzer 0 % (0-5); Neutrophil # 4.36 X10^3/uL (2.7-7.7); Platelet Count 307 K/mm3 (150-450); RBC Distribution Width CV 13.2 % (11.6-14.6); RBC Distribution Width SD 42.4 fl (35.1-43.9); Red Blood Count 5.54 M/mm3 (4.6-6.2); White Blood Count 7.1 K/mm3 (4.4-11.0)
[2022-10-16 08:24] LABS: Anion Gap 6 (5-15); BUN 13 mg/dL (7-18); BUN/Creat Ratio 13.6 RATIO (10-20); Calcium,Total 8.7 mg/dL (8.5-10.1); Chloride 106 mmol/L (98-107); Creatinine, Serum 0.95 mg/dL (0.70-1.30); EST Glomerular Filtration Rate 91 mL/min (>60); Est Glom Filt Rate - Afr Amer 111 mL/min (>60); Glucose 101 mg/dL (74-106); Potassium 3.5 mmol/L (3.5-5.1); Sodium Level 140 mmol/L (136-145)
[2022-10-16 08:30] LABS: AST(SGOT) 25 U/L (15-37); Alanine Aminotransfer ALT/SGPT 47 U/L (16-61); Albumin, Serum 3.8 g/dL (3.2-5.0); Alkaline Phosphatase 71 U/L (45-117); Bilirubin, Direct 0.15 mg/dL (0.00-0.30); Globulin 3.5 g/dL (2.2-4.2); Magnesium 2.4 mg/dL (1.6-2.6); Protein, Total 7.3 g/dL (6.4-8.2)
[2022-10-16 09:07] LABS: International Normalized Ratio 1.1; Partial Thromboplast Time 31.4 Seconds (24.1-36.2); Prothrombin Time (Protime)PT. 14.3 SECONDS (11.7-14.9)
[2022-10-16 09:10] LABS: HIV - WCH Non-Reactive (Nonreactive); Hepatitis B Surface Antibody Reactive; Hepatitis C Antibody Non-Reactive (Nonreactive)
[2022-10-17 05:07] LABS: Hepatitis A AB, Total Negative (Negative)
--- NOTE | 2022-10-24 16:48 | HP.PCM_ITS ---
History and Physical [id number] Acct: [id number] Name:MAMADOU DUARTE Rep #: [id number] : 1980 ? ? Provider: Dr. Gus Polk, DO Age/Sex:? 41/M ? ? Location: [facility] [place] Status: Signed Intake Intake Visit Reasons:?Cervical spine Allergies amoxicillin Allergy swelling hands, hard to breathfentanyl Allergy (Verified 04/10/22 08:02) jittery, anxiousvenom- Anaphylaxis Medications lisdexamfetamine 70 mg capsule 60 mg PO DAILY 07/06/16 [History Confirmed 04/10/22] amlodipine 2.5 mg tablet 10 mg PO DAILY 04/30/19 [History Confirmed 04/10/22] bisoprolol 2.5 mg-hydrochlorothiazide 6.25 mg tablet 1 ea PO QHS 04/30/19 [History Confirmed 04/10/22] cholecalciferol (vitamin D3) 25 mcg (1,000 unit) tablet 2,000 unit PO DAILY 04/30/19 [History Confirmed 04/10/22] loratadine 10 mg tablet 10 mg PO DAILY 04/30/19 [History Confirmed 04/10/22] PFSH Surgical History?( Hx of arthroscopy of right knee Social History?( HPI Cervical spine Details: Parts of this documentation were recorded by a scribe, this documentation accurately reflects the service provided and the decisions made by me, Dr. Gus Polk, [id number]. MAMADOU VOGEL is a 41 year old M here today for neck pain. States that it has b een off and on for the last 3 years. Patient did bring MRI disc with him. Denies injury. States that he has numbness and tingling down his right arm. States that laying down certain ways increases his pain. States that very rarely he ices it but when he does he doesn't find it helpful. Denies injections. Denies taking anything for the pain. Denies PT and HEP. Mamadou is a very pleasant young man 41 years old who has chief complaint of pain in his neck particularly on the right side and pain and numbness that goes down his right arm and what is described as a C6 dermatome.? This started about 3 years ago but is gradually gotten worse especially his arm.? He was sent to see me by Dr. Phelps in [place].? 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 Does not do any lifting.? Sometimes he simply cannot get comfortable at all.? He denies any bowel or bladder dysfunction.? He denies history of unexplained weight loss night fever sweats or chills.? He is left-hand dominant. On examination, he has a positive Spurling's to the right side that makes the pain increased down his arm.? He has a negative Spurling's to the left.? He has more pain with extension and no pain relief with flexion of his cervical spine.? He has no muscle atrophy.? He is got barely perceptible triceps biceps and brachioradialis reflexes which apparently is normal for him.? He has excellent motor strength of all the major muscle groups of both upper extremities.? In other words he has no neurological deficits.? He has no long tract signs.? Clonus is absent and Babinski's are downgoing. ? He brought an MRI disc with him.? Unfortunately the quality of the scan is not very good.? All I see is many pixels and its hard to tell the severity of the stenosis that he has at 5 6 and some at 6 7 on the right side.? He has obvious degenerative disc disease with a kyphos deformity at C5-6.? Plain x-rays of the cervical spine taken in my office demonstrate some straightening of the cervical lordosis with a bit of a kyphos at C5-6 with decreased disc space at C5-6 in particular. I explained to Mamadou that he has 3 reasonable choices at this point.? Choice #1 which is reasonable is to continue to live as he does because he has no neurological deficit and if he can stand the discomfort it is okay.? Option #2 which is only symptomatic treatment would include epidural steroid injection in hopes of buying some relief for a while.? However it will not change the pathology obviously.? And then option #3 that is reasonable is to go ahead and fix it with anterior cervical discectomy and interbody fusions at both 5 6 and 6 7 as best I can tell.? I told him if he should choose the last option we will need to get a better quality MRI scan prior to surgery.? I explained to him that physical therapy is not a reasonable option because he will not do a thing to help his pain and it will probably only aggravated as obscene thousands of times.? He will think it all over talk to his about it and if he decides to get more information he will bring her in so that we can discuss it at length.? Otherwise I will see him on a as needed basis.
[2022-10-29] VITALS (16 sets, daily range): BP systolic 134–167; BP diastolic 75–97; PULSE 54–75; RESP 16–18; TEMP 36–37.4; O2SAT 88–97; BMI 35.1
[2022-10-29] MEDS: Lactated Ringers 1,000 ML 15 ML IV ×2 (05:50→12:37)
[2022-10-29] MEDS: dexAMETHasone 10 MG/ML Vial 8 MG IV (05:55)
[2022-10-29] MEDS: Magnesium 1 GM over 15 mins IV (06:00)
[2022-10-29 06:12] LABS: Bedside Glucose 194 mg/dL (74-106)
[2022-10-29] MEDS: Acetaminophen 500 MG Tablet 1000 MG PO ×3 (06:21→20:51)
--- NOTE | 2022-10-29 06:30 | RAD_ITS ---
STUDY: X-RAY - CERVICAL SPINE REASON FOR EXAM: Male, 42 years old. ANTERIOR FUSION C5-6, C6-7 -- IMAGE #1 TECHNIQUE: 1 view(s) of the cervical spine were obtained. COMPARISON: None FINDINGS: The localization instrument is seen anterior to the C5-C6 disc space level. RAD/Spine 1 View Any Level IMPRESSION: The localization instrument is seen anterior to the C5-C6 disc space level. Electronically Signed: Deepak Seymour MD at 13:06 EDT ,
--- NOTE | 2022-10-29 07:30 | DISC_PTH ---
PATIENT: EITAN VOGEL LOC: [facility] U#:[id number] AGE/SX: 42/M ROOM: W[place]317 RE10/29/[address]: Dr. uGs Polk DO : 1980 BED: 1 DIS: 10/31/2022 SPEC #: [id number] RECD: 10/29/22 12:57 STATUS: [place] #: [id number] MECCA: 10/29/22 07:[address]: Gus Polk DEPT: SURGICAL PATHOLOGY RECD BY: Soha Thorpe ENTERED: 10/29/22 13:08 SP TYPE: DISC OTHR DR: Dr. Dutch Orr DO Tissues: A - Intervertebral disc, NOS B - Intervertebral disc, NOS Procedures: Surgery Specimen Level III HEADER OPERATION: ERAS, anterior cervical fusion C6-7 and C5-6 PRE-OP DIAGNOSIS: Cervical spine stenosis TISSUE SUBMITTED: A ? Disc C5-6, B ? Disc C6-7 MICROSCOPIC DIAGNOSIS A. Disc C5-6: Fragments of fibrocartilaginous tissue with degenerative changes and bone. B. Disc C6-7: Fragments of fibrocartilaginous tissue with degenerative changes. LEIGH:[place] 10/30/2022 MICROSCOPIC DESCRIPTION Slides are reviewed. GROSS DESCRIPTION A - Received in fixative is one container labeled with the patient's name and designated disc C5-6. The specimen consists of multiple irregular fragments of cormier, indurated tissue that in aggregate measure 3.0 x 2.5 x 0.3 cm. The specimen is totally submitted in one cassette. B - Received in fixative is one container labeled with the patient's name and designated disc C6-7. The specimen consists of multiple irregular fragments of cormier, indurated tissue that in aggregate measure 5.0 x 3.0 x 0.3 cm. Instructor Tap Dancing sections are submitted in one cassette. / LEIGH:[place] 10/29/2022 TC:5 CPT: 28414 x2
[2022-10-29] MEDS: Cefazolin 2 GM in 0.9% Normal Saline 100 ML IV (08:08)
--- NOTE | 2022-10-29 08:34 | RAD_ITS ---
STUDY: X-RAY - CERVICAL SPINE REASON FOR EXAM: Male, 42 years old. ANTERIOR FUSION C5-6, C6-7 -- image #2 TECHNIQUE: 1 view(s) of the cervical spine were obtained. COMPARISON: None FINDINGS: The localization instrument is seen along the anterior aspect of the C5-C6 disc space level. RAD/Spine 1 View Any Level IMPRESSION: The localization instrument is seen along the anterior aspect of the C5-C6 disc space level. Electronically Signed: Deepak Seymour MD at 14:09 EDT ,
[2022-10-29] MEDS: Heparin 10,000 UNITS/10 ML Vial 10000 UNITS (08:52)
[2022-10-29 09:54] LABS: Bedside Glucose 121 mg/dL (74-106)
--- NOTE | 2022-10-29 10:15 | RAD_ITS ---
STUDY: X-RAY - CERVICAL SPINE REASON FOR EXAM: Male, 42 years old. Anterior fusion. Intraoperative digital documentation image. TECHNIQUE: A single lateral view(s) of the cervical spine was obtained. COMPARISON: Intraoperative images dated earlier in the day. FINDINGS: Single lateral view shows anterior fusion from C5 to C7 with intervertebral disc prostheses at C5-6 and C6-7. Anatomic alignment without complications. . RAD/Spine 1 View Any Level IMPRESSION: Postoperative image documenting fusion. Electronically Signed: Shilo Mcgrath MD at 13:01 EDT ,
[2022-10-29] MEDS: THROMBIN (RECOMBINANT) 20,000 UNIT VIAL 20000 UNIT TOPICAL (10:29)
--- NOTE | 2022-10-29 12:48 | OP.PCM_ITS ---
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 Polk Adjunct Philosophy Faculty: Dyana GRAVES Anesthesia: General endotracheal by [facility] Estimated blood loss: Less than 50 cc Drains: Medium Hemovac Complications: Dural leak Procedure: Patient was taken to the OR where he was placed in the supine position on the operating table. He was then placed under general endotracheal anesthesia. A Adrian catheter was inserted. Neuro monitoring placed their leads on the patient. A preoperative x-ray was taken with a needle marker taped to the side of the neck so that we would know her to start the incision. This was marked by a small laceration using the end of a sharp needle in the midline. This would be our starting point for the incision. The neck and the left iliac crest was then prepped and draped in standard fashion. First we obtained a 60 cc of BMA from the left crest. Incision was made through the skin to prevent the needle from going through the skin and then the Jamshidi needle was placed on the edge of the crest tamped into place and we obtained our 60 cc of BMA. This was handed off to the diesel technician in the room. The blood was then spun with a special centrifuge and the cells . She then collected the patient's own stem cells concentrated them about 10 times and gave them back to us to put on the table. I then made an incision at the predetermined point mentioned earlier. Curved to the edge of the right sternocleidomastoid muscle. Subcutaneous tissues were incised length of skin incision note that he had a tremendous amount of fat in the subcutaneous tissues we had to go through all that and had to end up cutting the platysma transversely instead of splitting it longitudinally. I then found the interval between the medial strap muscles and the sternocleidomastoid and this was then exploited. First I opened the precervical fascia followed by the opening of the pretracheal fascia. In this fashion I was able to retract the midline structures that is the trachea and esophagus to the patient's left side and the sternocleidomastoid and the carotid sheath to the right. This gave us good access to the space thought to be C5-6 I then put a needle in place after opening the precervical fascia using cautery. An intraoperative x-ray was taken with the needle in place that confirmed that we were indeed at C5-6. We then simply moved down 1 level marked at and began surgery at that level first I cauterized E. coli muscles on either border elevated and gently off of the disc base at C6-7. Self-retaining industrial conveyor belt repairer retractors were then put in place both up and down and sideways given us good access to the C6-7 space using a 15 blade I opened the space and remove the anterior annulus. I then removed more nucleus from from within the disc base with with pituitary rongeurs I then used angled curettes to remove the cartilage off both endplates. A intervertebral body distractor was then placed on the left side opening the right side. Using the erickson bur I then was able to bur down the large uncinate process down to a very thin shell. Using sharp curettes I then removed the remaining very thin of bone off of the base of the C7 nerve root. I then checked this with a nerve hook was found to be quite open out the foramen. I removed all remaining cartilage off both endplates. I then used a erickson bur to bur the anterior osteophytes down flat. Took our measurements before a cage. We ended up using a 10 mm high large size cage. Note that the cage was filled with allograft and soaked in the patient's own stem cells to promote fusion through the cage. Then tamped into place and countersunk a couple of millimeters. We then removed the instrumentation and moved up to 1 level to C5-6. In the coli muscles were cauterized on either side. I then elevated and gently off of the disc space on each side this of course is after putting the industrial conveyor belt repairer retractors back in place. I remove the anterior annulus note that the space was quite a bit less then the space was at C6-7. And there was a tremendous amount of bony calcification of the right side of the disc. I was able to remove it. Some of it had to do with an osteotome but then we were able to remove more nucleus from within the disc space all the way to the back. A distractor again on the left side was able to distract the right side and give me enough visualization to open the foramen on the right side this was done again the same technique by burring followed by the insertion of cold saline and burring some more until it was a thin shell of bone directly over the base of the nerve root note that this foramen was much tighter than the even the C6-7 was. Once all the shell was removed off of the base of the nerve root it was again free and we could easily move the nerve root into the foramen. Note that neuromonitoring did motors throughout this part of the procedure of both levels. They were all normal. We then took our measurements for a cage and decided on an 8 mm cage for this level. Once all the cartilage was off both endplates the cage was then filled with allograft and soaked in the patient's own concentrated stem cells. We then tamped it into place however we noticed once it was tamped into place that we saw cerebrospinal fluid coming out of the depths. At this point we had to remove the cage we placed a couple of layers of DuraGen across the back of the disc space. This completely stopped the dural leak. We then put the same cage back in place and tamped it a couple of millimeters into the space. The space remained dry with no CSF noted. We then placed the [address] We first placed the 2 screws in the center of her brother is the C6 vertebra. The cage was sent and we tamped it and ended with each of the screws at all 6 points. This was observed on plain x-rays found to be quite satisfactory. It had good position of the cages the plate and the screws. Amniotic membrane was then placed over the anterior plate to prevent adhesions to the trachea or the esophagus. A 1/4 inch Melia was then inserted and closure was begun with the closure was simply closing the subcutaneous tissues w ith 5-0 Vicryl suture this approximated the skin quite well. Sterile dressings were then applied and a 30 1/4 inch Melia drain was left in place. Safety pin was placed through the drain to prevent suction into the wound. The patient was then recovered in the OR he was moved to his hospital bed and taken to recovery in satisfactory condition. This is the end of operative summary on Mamadou alaniz. This is Dr. Polk dictating.
[2022-10-29] MEDS: Lactated Ringers 1,000 ML 100 ML IV ×2 (13:56→23:28)
[2022-10-29] MEDS: Ensure Surgery 237 ML LIQUID PO (17:28)
[2022-10-29] MEDS: amLODIPine 2.5 MG Tablet 10 MG PO (17:28)
[2022-10-29] MEDS: dexAMETHasone 4 MG/ML Vial IV ×2 (17:29→20:39)
[2022-10-29] MEDS: Cefazolin 1 GM/50 ML BAG IV ×2 (17:33→23:28)
[2022-10-29] MEDS: oxyCODONE 5 MG Tablet PO (20:37)
[2022-10-29] MEDS: Morphine 4 MG/ML Syringe IV (23:50)
[2022-10-30] VITALS (10 sets, daily range): BP systolic 140–159; BP diastolic 70–93; PULSE 59–73; RESP 16–18; TEMP 36.3–37.3; O2SAT 83–95
[2022-10-30] MEDS: oxyCODONE 5 MG Tablet PO ×4 (03:55→22:14)
[2022-10-30] MEDS: dexAMETHasone 4 MG/ML Vial 2 MG IV ×2 (03:56→09:32)
[2022-10-30] MEDS: Acetaminophen 500 MG Tablet 1000 MG PO ×3 (06:37→22:14)
[2022-10-30] MEDS: amLODIPine 2.5 MG Tablet 10 MG PO (07:48)
[2022-10-30] MEDS: Loratadine 10 MG Tablet PO (07:48)
[2022-10-30] MEDS: Lactated Ringers 1,000 ML 100 ML IV (07:54)
[2022-10-30] MEDS: Ensure Surgery 237 ML LIQUID PO (07:55)
[2022-10-30] MEDS: 0.9% Saline Lock 10 ML Syringe IV (09:31)
--- NOTE | 2022-10-30 10:32 | CASEMGMT ---
NICOLASA SWANSON Assessment: Face to Face with pt for initial transition planning/care coordination assessment. RN KIKI introduced self and role at [facility], pt voices understanding and consents to assessment. Pt is A/O x4 and answers all questions appropriately at this time. Pt lying in bed on bedrest in no distress with at bedside. Care providers, pharmacy, and demographics verified/updated. Admitting Dx: anterior cervical fusion C6-7,C5-6 rt PCP: Dominga Specialists:Jam, spine OR; erasmo Davison Preferred Pharmacy: [facility] Retail Insurance: [employer] Prescription Benefit: yes LNOK: Yeni Caicedo, leny Living Arrangements: Pt lives with and son in a story and a half home with 3 steps to enter with a rail. Pt reports he was I in ADL's prior to surgery and denies concerns at home. Transportation: Pt drives self and denies concerns with transportation. Pt will transport pt until he is able to drive again. DME/HHC/SNF: Pt has a cane and FWW at home, typically does not use AD. Pt denies hx of HHC or SNF stays. Pt states no concerns with going home at time of dc. Pt states no further concerns/needs. CM to follow. Advised pt to ask CM if any further question/concerns/needs arise, voices understanding. Pt Goal: Home Plan: Home
--- NOTE | 2022-10-30 12:50 | PCM.PN.ORT ---
Objective Data Objective Data Mamadou is seen on rounds. He is in the company of his Yeni. Of course he is laying basically flat in bed because of his dural leak that we had yesterday at surgery. He has no complaints. He has right arm pain and tingling and numbness is completely resolved. He is very pleased about this. His dressing is dry. We will plan on getting him up tomorrow morning. I told him to watch out for a posterior headaches when he does get up. If he is doing well by tomorrow afternoon we will let him go home. This is the end of a progress note on Mamadou Caicedo. This is Dr. Polk dictating. Vital Signs: Vital Signs Temp Pulse Resp BP Pulse Ox O2 Del Method O2 Flow Rate 98.9 F 73 18 158/74 H 92 Nasal Cannula 3 10/30/22 11:53 10/30/22 11:53 10/30/22 11:53 10/30/22 11:53 10/30/22 11:53 10/30/22 11:53 10/30/22 11:53 FiO2 2 10/29/22 16:58 Oxygen Flow Rate (L/min) 3 Oxygen Delivery Method Nasal Cannula Weight: 244 lb 14.937 oz Body Mass Index (BMI) 35.1 Intake & Output: Intake and Output for Last 24 Hours 10/28/22 10/29/22 10/30/22 23:59 23:59 23:59 Intake Total 2265.33 / 2465.33 1561.83 / 1561.83 Output Total 425 / 1075 2075 / 2075 Balance 1840.33 / 1390.33 -513.17 / -513.17 Lab / Micro Data Result Diagrams: 10/16/22 07:31 10/16/22 07:31 Micro: Microbiology 10/16/22 07:31 Swab (Method) Nasal Screen MRSA/MSSA - Final Radiography Diagnostic Testing: Radiology Impression Spine X-Ray 10/29/22 10:15 IMPRESSION: Postoperative image documenting fusion. Electronically Signed: Shilo Mcgrath MD at 13:01 EDT ,
[2022-10-30] MEDS: Lactated Ringers 1,000 ML 15 ML IV (16:23)
[2022-10-30] MEDS: Zolpidem Tartrate 5 MG Tablet PO (22:14)
[2022-10-31 03:26] VITALS: BP 142/88; PULSE 72; RESP 16; TEMP 36.3; O2SAT 95
[2022-10-31] MEDS: oxyCODONE 5 MG Tablet PO ×2 (03:35→08:00)
[2022-10-31] MEDS: Acetaminophen 500 MG Tablet 1000 MG PO ×2 (06:27→13:45)
[2022-10-31 07:45] VITALS: BP 155/83; PULSE 64; RESP 16; TEMP 36.6; O2SAT 97
[2022-10-31] MEDS: amLODIPine 10 MG Tablet PO (08:01)
[2022-10-31] MEDS: Loratadine 10 MG Tablet PO (08:01)
[2022-10-31 08:03] VITALS: O2SAT 94
--- NOTE | 2022-10-31 11:40 | DCINST_ITS ---
Discharge Instructions Activity May shower in (days): 4 May resume sexual activity in: 4-6 weeks Weight Bearing Status: Full weight bearing Dressing / Incision Remove Dressing in: 3 days Follow Up Care Test Results: Test results from this visit will be discussed in further detail at your follow- up appointment, if applicable. Discharge Plan Admission Admit Date/Time: 10/29/22 05:20 Primary Reason for Your Visit: cervical fusion Attending Provider: Gus Polk Primary Care Provider: Dutch Orr Discharge Orders/Prescriptions Prescriptions: No Action Dupixent Pen 300 mg/2 mL pen injector 300 mg subcut .QOWEEK lisdexamfetamine 70 MG capsule 60 mg PO DAILY bisoprolol-hydrochlorothiazide 1 EACH tablet 1 ea PO QHS Rx Instructions: DOSE IN 5-6.25!!! NOT AVAILABLE FOR ENTRY loratadine 10 MG tablet 10 mg PO DAILY cholecalciferol (vitamin D3) 1,000 UNIT tablet 2,000 unit PO DAILY amlodipine 2.5 MG tablet 10 mg PO DAILY oxycodone-acetaminophen 5-325 mg tablet 1 tab PO Q6H PRN (Reason: pain) 10 Days Qty: 40 0RF Referrals / Follow Up: Dutch Orr DO [Primary Care Provider] - Disposition Disposition (needs filled in before D/C Order can be placed): Home, Self Care
--- NOTE | 2022-10-31 11:43 | PCM.DC.SUM ---
Providers Date of Admission: 10/29/22 Primary Care Physician: Dr. Dutch Orr, Attending Physician: This is discharge summary on Mamadou Caicedo. This patient was admitted 2 days ago and underwent anterior cervical fusion at the C6-7 and C5-6 levels. Because of a dural leak we kept him in bed all day yesterday and the night before. We got him up this morning it was a little lightheaded but he had no headaches. I change the dressing earlier the incision is dry and healing well with the drain was removed. Instructions were given to the patient and his . He already has an appointment to see me in the office. I also prescribe some oxycodone 5/325 for pain. This the end of discharge summary on Mamadou Caicedo. This is Dr. Polk dictating. Reason For Visit: ANTERIOR CERVICAL FUSION C6-7, C5-6 RT Medications at Discharge Home Medications lisdexamfetamine 70 mg capsule 60 mg PO DAILY DEPRESSION 07/06/16 amlodipine 2.5 mg tablet 10 mg PO DAILY BP 04/30/19 bisoprolol 2.5 mg-hydrochlorothiazide 6.25 mg tablet 1 ea PO QHS BP 04/30/19 cholecalciferol (vitamin D3) 25 mcg (1,000 unit) tablet 2,000 unit PO DAILY SUPPLEMENT 04/30/19 loratadine 10 mg tablet 10 mg PO DAILY ALLERGIES 04/30/19 dupilumab 300 mg/2 mL subcutaneous pen injector (Dupixent) 300 mg subcut .QOWEEK / 08/29/22 oxycodone-acetaminophen 5 mg-325 mg tablet 1 tab PO Q6H PRN pain 10 days #40 tabs 10/31/22 Weight / BMI Weight Weight: 244 lb 14.937 oz Body Mass Index (BMI) 35.1 ABG / Lab / Microbiology Data Result Diagrams: 10/16/22 07:31 10/16/22 07:31 Microbiology: Microbiology 10/16/22 07:31 Swab (Method) Nasal Screen MRSA/MSSA - Final Radiography Diagnostic Testing: Radiology Impression Spine X-Ray 10/29/22 06:30 IMPRESSION: The localization instrument is seen anterior to the C5-C6 disc space level. Electronically Signed: Deepak Seymour MD at 13:06 EDT , Spine X-Ray 10/29/22 10:15 IMPRESSION: Postoperative image documenting fusion. Electronically Signed: Shilo Mcgrath MD at 13:01 EDT , D/C Instructions May shower in (days): 4 May resume sexual activity in: 4-6 weeks Weight Bearing Status: Full weight bearing Meaningful Use Info Meaningful Use Diagnoses (Choose all that apply): None applicable Discharge Plan Admission Admit Date/Time: 10/29/22 05:20 Primary Reason for Your Visit: cervical fusion Attending Provider: Gus Polk Primary Care Provider: Dutch Orr Discharge Orders/Prescriptions Prescriptions: No Action Dupixent Pen 300 mg/2 mL pen injector 300 mg subcut .QOWEEK lisdexamfetamine 70 MG capsule 60 mg PO DAILY bisoprolol-hydrochlorothiazide 1 EACH tablet 1 ea PO QHS Rx Instructions: DOSE IN 5-6.25!!! NOT AVAILABLE FOR ENTRY loratadine 10 MG tablet 10 mg PO DAILY cholecalciferol (vitamin D3) 1,000 UNIT tablet 2,000 unit PO DAILY amlodipine 2.5 MG tablet 10 mg PO DAILY oxycodone-acetaminophen 5-325 mg tablet 1 tab PO Q6H PRN (Reason: pain) 10 Days Qty: 40 0RF Referrals / Follow Up: Dutch Orr DO [Primary Care Provider] - Disposition Disposition (needs filled in before D/C Order can be placed): Home, Self Care
[2022-10-31 12:35] VITALS: BP 154/73; PULSE 71; RESP 16; TEMP 36.9; O2SAT 94
[2022-10-31 16:16] VITALS: BP 156/88; PULSE 65; RESP 16; TEMP 36.7; O2SAT 95
== END 2022-10-31 16:50 | disposition home or self-care (01) | DRG 472 ==
LOC: ACINP 05:21 → MS3 13:59
PROVIDERS: Anesthesiology; Admitting Provider Orthopaedic Surgery; PCP Preventive Medicine Occupational Medicine; Referring Provider Orthopaedic Surgery; Visit Provider Orthopaedic Surgery
PROC: 0RG20A0 Fusion of 2 or more Cervical Vertebral Joints with Interbody Fusion Device, Anterior Approach, Anterior Column, Open Approach (ICD-10-PCS; CPT 22551; principal; 2022-10-29 07:00)
DX: M48.02 Spinal stenosis, cervical region (principal); G97.41 Accidental puncture or laceration of dura during a procedure; F90.9 Attention-deficit hyperactivity disorder, unspecified type; I10 Essential (primary) hypertension; Z79.899 Other long term (current) drug therapy
CPT/HCPCS: 36415; 72020; 80048; 80076; 82962; 83735; 85025; 85610; 85730; 86703; 86706; 86708; 86803; 87081; 88304; 93005; 94668; 97162; C1713; J7120; A4216; J2405; J3475

== ENCOUNTER → 2023-07-12 | Outpatient (CLI) | payer BC, SELFPAY ==
--- OUTSIDE RECORDS SUMMARY | 2023-07-12 08:34 | XMS RPT_ITS | CCD ---
Author Name Unknown Address [address] [place] [address] Organization [facility] Care Team Providers Care 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 Name Role Phone Taina Orr Primary Care Provider [phone] MITRA ROB Attending Unavailab MITRA Arce Referring Unavailab TAINA Renteria Primary Care Unavailable MITRA ROB Attending Unavailab TAINA Renteria Primary Care Unavailable MITRA ROB Referring Unavailab TAINA Renteria Primary Care Unavailable MITRA ROB Referring Unavailab TAINA Renteria Primary Care Unavailable Taina Orr Unavailable Frieda, Dr. Clovis Martínez Attending Tabatha Orr, Dr. Taina Salcido Primary Care Yen Orr, Dr. Taina Salcido Primary Care Unavailkimberly Malave, Dr. Clovis Martínez Admitting Unav ailcarley Malave, Dr. Clovis Martínez Attending Tabatha Malave, Dr. Clovis Martínez Referring Unav ailable Frieda, Dr. Clovis Martínez Attending Tabatha Orr, Dr. Taina Salcido Primary Care Yen Orr, Dr. Taina Salcido Primary Care Unavailkimberly Malave, Dr. Clovis Martínez Attending TAINA De Leon DO Primary Care Unavailable NOAH LYNCH MD Admitting Unavailable NOAH LYNCH MD Attending Unavailable HOSPITALISTJOE Unavailable TAINA ORR DO Primary Care Physician [phone] Allergies Allergy Classification Reported Allergen(s) Allergy Type Date of Onset Reaction(s) Facility (10 sources) Amoxicillin; Translations: [AMOXICILLIN] Drug Allergy 5 Swelling, Swelling (finding) [facility] (10 sources) fentaNYL; Translations: [FENTANYL] Drug Allergy 6 Intolerance, Anxiety (finding) [facility] Work Phone: (5 sources) Bees; Translations: [BEES] Propensity to adverse reactions 5 [facility] Work Phone: (4 sources) OR meds [Other] Propensity to adverse reactions 6 Intolerance [facility] Work Phone: (1 source) OTHER; Translations: [OTHER] Propensity to adverse reactions (disorder) 6 [facility] Repository (4 sources) apis mellifera venom Allergy to substance (finding) [facility] Work Phone: (1 source) amLODIPine; Translations: [amlodipine] Drug Allergy 1 Insomnia (disorder) [facility] Crescencio (1 source) Bee/Wasp/Ant venom Allergy to substance Difficulty breathing (finding) [facility] Medications Current Medications Medication Drug Class(es) Dates Sig (Normalized) Sig (Original) amLODIPine 10 mg oral tablet (8 sources) Dihydropyridine Calcium Channel Bharath Start: 11-13-2022 End: 11-27-2022 amLODIPine 10 mg oral tablet Dose : 10 mg = 1 tab(s), Oral, qDay, # 90 tab(s), 3 Refill(s), Pharmacy: [facility][id number], Essential hypertension, 175, cm, 11/13/22 8:07:00 EDT, Height, kg, 11/13/22 8:07:00 EDT, Dosing Weight Start Date: 11/13/22 Stop Date: 11/27/22 Status: Ordered Completed/Discontinued Medications Medication Drug Class(es) Dates Sig (Normalized) Sig (Original) acetaminophen 325 mg / oxyCODONE hydrochloride 5 mg oral tablet (8 sources) Opioid Agonist Start: 07-11-2016 take 1 tablet by mouth every four hours as needed oxyCODONE-acetami nophen (PERCOCET) 5-325 mg tablet Take 1 tablet by mouth every 4 hours as needed for Pain. 30 tablet 0 07/11/2016 Active Problems Active Problems Problem Classification Problem Date Documented Da te Episodic/Chronic Allergic reactions (3 sources) Allergy status to penicillin; Translations: [Allergic disposition] Onset: 07-05-2022 04-04-2021 Episodic Anxiety disorders (4 sources) Anxiety state; Translations: [Generalized anxiety disorder] Onset: 07-14-2007 07-14-2007 Chronic Disorders usually diagnosed in infancy, childhood, or adolescence (5 sources) Attention deficit hyperactivity disorder, predominantly inattentive type; Translations: [Other specified behavioral and emotional disorders with onset usually occurring in childhood and adolescence] Onset: 04-13-2005 04-13-2005 Chronic Essential hypertension (1 source) Essential hypertension 12-01-2018 Chronic Hemorrhoids (1 source) Hemorrhoids 12-13-2021 Episodic Joint disorders and dislocations; trauma-related (8 sources) Chondromalacia of patella; Translations: [Chondromalacia patellae, unspecified knee] Onset: 09-24-2005 09-24-2005 Chronic Mood disorders (1 source) Depressive disorder 12-01-2018 Chronic Osteoarthritis (5 sources) Disorder of joint of shoulder region; Translations: [Arthropathy, unspecified, shoulder region] Onset: 08-06-2022 Chronic Other gastrointestinal disorders (1 source) Rectal mass 12-13-2021 Episodic Other nervous system disorders (2 sources) Neuritis of right ulnar nerve; Translations: [Lesion of ulnar nerve, right upper limb] Chronic Other nervous system disorders (1 source) Lesion of ulnar nerve, right upper limb; Translations: [Ulnar neuritis, right] Onset: 02-15-2022 Chronic Other nervous system disorders (1 source) Paresthesia; Translations: [Paresthesia of skin] Episodic Other non-traumatic joint disorders (1 source) Osteophyte, vertebrae; Translations: [Osteophyte, vertebrae] Onset: 08-06-2022 Chronic Other nutritional; endocrine; and metabolic disorders (1 source) Severe obesity 07-04-2021 Chronic Residual codes; unclassified (1 source) Pain; Translations: [Pain, unspecified] Episodic Residual codes; unclassified (1 source) Family history of cancer of colon 12-13-2021 Episodic Residual codes; unclassified (1 source) Insomnia 12-01-2018 Episodic Spondylosis; intervertebral disc disorders; other back problems (9 sources) Cervical spondylosis; Translations: [Spondylosis without myelopathy or radiculopathy, cervical region] Onset: 03-22-2022 Chronic Spondylosis; intervertebral disc disorders; other back problems (11 sources) Cervical radiculopathy; Translations: [Radiculopathy, cervical region] Onset: 03-15-2022 Episodic Unclassified (1 source) Cerebrospinal fluid leak, unspecified; Translations: [Cerebrospinal fluid leak, unspecified] Onset: 11-04-2022 Unclassified (1 source) Patient encounter status 06-11-2019 Past or Other Problems Problem Classification Problem Date Documented Date Episodic/Chronic Contraceptive and procreative management (4 sources) Encounter for other procreative management; Translations: [Other specified procreative management] Onset: 11-15-2014 11-15-2014 Episodic Other aftercare (4 sources) Surgical follow-up; Translations: [Encounter for follow-up examination after completed treatment for conditions other than malignant neoplasm] Onset: 04-09-2006 04-09-2006 Episodic Unclassified (1 source) Cerebrospinal fluid leak, unspecified; Translations: [Cerebrospinal fluid leak, unspecified] Onset: 11-04-2022 Results Test Name Value Interpretation Reference Range Facil ity Vital Signs Date Time Vital Sign Value Performing Clinician Elizabeth mas 08-06-2022 08:11-0500 Body mass index (BMI) [Ratio] 35.15 kg/m2 Taina Salcido Dominga Work Phone: [facility] Work Phone: 08-06-2022 08:11-0500 Body surface area Derived from formula 2.28 m2 Taina Loly Dominga Work Phone: [facility] Work Phone: 08-06-2022 08:11-0500 Body weight 111.13 kg Taina Loly Dominga Work Phone: [facility] Work Phone: 08-06-2022 08:11-0500 Diastolic blood pressure 118 mm[Hg] Taina Orr Work Phone: [facility] Work Phone: 08-06-2022 08:11-0500 Heart rate 88 /min Taina Agustinsay Work Phone: [facility] Work Phone: 08-06-2022 08:11-0500 Respiratory rate 16 /min Taina Salcido Dominga Work Phone: [facility] Work Phone: 08-06-2022 08:11-0500 Systolic blood pressure 176 mm[Hg] Taina Salcido Dominga Work Phone: [facility] Work Phone: 05-28-2022 09:16-0500 Diastolic blood pressure 93 mm[Hg] Taina Agustinsay Work Phone: [facility] Work Phone: 05-28-2022 09:16-0500 Systolic blood pressure 168 mm[Hg] Taina Agustinsay Work Phone: [facility] Work Phone: 05-28-2022 08:42-0500 Body height 177.8 cm Taina Agustinsay Work Phone: [facility] Work Phone: 05-28-2022 08:42-0500 Body mass index (BMI) [Ratio] 35.73 kg/m2 Taina Agustinsay Work Phone: [facility] Work Phone: 05-28-2022 08:42-0500 Body surface area Derived from formula 2.29 m2 Taina Salcido Dominga Work Phone: [facility] Work Phone: 05-28-2022 08:42-0500 Body weight 112.95 kg Taina Orr Work Phone: [facility] Work Phone: 05-28-2022 08:42-0500 Diastolic blood pressure 118 mm[Hg] Taina Orr Work Phone: [facility] Work Phone: 05-28-2022 08:42-0500 Respiratory rate 16 /min Taina Orr Work Phone: [facility] Work Phone: 05-28-2022 08:42-0500 Systolic blood pressure 188 mm[Hg] Taina Orr Work Phone: [facility] Work Phone: Encounters Encounter Date Encounter Type Care Provider Facility Start: 11-21-2022 End: 11-21-2022 Admission to same day surgery center TAINA ORR DO [facility] Start: 11-04-2022 End: 11-09-2022 Evaluation and management of inpatient TAINA ORR DO Facility:A Start: 08-07-2022 Chart Update Taina mitsry Work Phone: [facility] Work Phone: Start: 08-06-2022 Patient encounter procedure Taina Orr Work Phone: [facility] Work Phone: Start: 08-06-[address] Clovis Mosley tthew Frieda Facility:[id number] Start: 07-05-2022 End: 07-05-[address] Taina Orr Facility:[id number] Start: 05-28-2022 Patient encounter procedure Taina Orr Work Phone: [facility] Work Phone: Start: 05-28-[address] Taina Orr Fa cility:[id number] Start: 03-22-2022 End: 03-22-2022 ambulatory Mitra Merinochastityholly DO Work Phone: Orthopaedics Procedures Date Procedure Procedure Detail Performing Clinician Start: 07-05-2022 Epidural steroid injection Taina Orr Work Phone: Plan of Treatment Date Care Activity Detail Author Start: 07-30-2022 FUV, Provider: Clovis Malave, Status: Pen, Time: 8:00 AM FUV, Provider: Clovis Malave, Status: Pen, Time: 8:00 AM [facility] Work Phone: Start: 01-31-2022 Influenza vaccination INFLUENZA (#1) [facility] Start: 06-02-2021 DEPRESSION ASSESSMENT DEPRESSION ASSESSMENT [facility] Start: 03-07-2021 COVID-19 VACCINE (3 - Booster for Moderna series) COVID-19 VACCINE (3 - Booster for Moderna series) [facility] Start: 11-30-2020 COVID-19 VACCINE (3 - Booster for Moderna series) COVID-19 VACCINE (3 - Booster for Moderna series) [facility] Start: 03-26-2016 Urine microalbumin profile DTAP,TDAP,TD (2 - Td or Tdap) [facility] Start: 2014 LIPID SCREEN LIPID SCREEN [facility] Start: 1997 HEPATITIS C SCREENING HEPATITIS C SCREENING [facility] Start: 1997 HIV SCREENING HIV SCREENING [facility] Start: 1991 Adult depression screening assessment DEPRESSION SCREENING [facility] Start: 1979 HEPATITIS B (1 of 3 - 3-dose series) HEPATITIS B (1 of 3 - 3-dose series) [facility] End: 12-26-2022 EMG(NEURO/NI) EMG(NEURO/NI) EMG Routine Ulnar neuritis, right 1 Occurrences starting 12/26/2021 until 12/26/2022 [facility] Work Phone: Immunizations Immunization Date Immunization Notes Care Provider Luis castañeda 03-26-2006 tetanus toxoid, redu presley diphtheria toxoid, and acellular pertussis vaccine, adsorbed [employer] Work Phone: [facility] Work Phone: 03-02-2006 influenza virus vaccine, whole virus [employer] Work Phone: [facility] Work Phone: Payers Date Payer Category Payer Unknown [employer]ECILIO SCHAEFER PPO [id number] 2016-Present [phone] [address] [place] [address] PPO [id number] 2016 Unknown [id number] 2016 Unknown [id number] 1979 Unknown [id number] 1979 Unknown [id number] 1979 Unknown [id number] 1979 Unknown [id number] 1979 Unknown [id number] Social History Date Type Detail Facility Start: 12-01-2018 End: 12-26-2021 Tobacco smoking status MIIS Never smoked tobacco [facility] Clinical Notes 10-07-2005 to 11-12-2022 Mitra Rob, DO - 03/22/2022 1:04 PM Hollie Gonzales, DO - 02/15/2022 8:01 AM Vincent Rob, DO - 12/26/2021 8:54 AM David Devries, CT - 12/26/2021 8:10 AM EDT Note Date & Type Note Facility 11-12-2022 Note . MICRO - Microbiology PROCEDURE: Culture Cerebrospinal Fluid with Gram Stain [O1 *1] SOURCE: Cerebrospinal Fluid BODY SITE: COLLECTED DATE/TIME: 11/08/2022 22:56 EDT RECEIVED DATE/TIME: 11/09/2022 00:23 EDT START DATE/TIME: 11/09/2022 00:23 EDT FREE TEXT SOURCE: FINAL REPORTS Final Report [] Verified Date/Time/Personnel: 11/12/2022 07:54 EDT No growth at 48 hours. PRELIMINARY REPORTS Preliminary Report [] Verified Date/Time/Personnel: 11/10/2022 12:07 EDT No growth to date STAINS GS [] Verified Date/Time/Personnel: 11/09/2022 01:48 EDT Sedimented No organisms seen. Order Comments O1: Culture Cerebrospinal Fluid with Gram Stain (CSF Culture with Gram Stain) While SA drain remains in place Performing Locations *1: This test was performed at: [address], [address] [place] [address] ([place]) 11-10-2022 Note . MICRO - Microbiology PROCEDURE: Culture Cerebrospinal Fluid with Gram Stain [O1 *1] SOURCE: Cerebrospinal Fluid BODY SITE: COLLECTED DATE/TIME: 11/07/2022 23:04 EDT RECEIVED DATE/TIME: 11/07/2022 23:11 EDT START DATE/TIME: 11/07/2022 23:11 EDT FREE TEXT SOURCE: FINAL REPORTS Final Report [] Verified Date/Time/Personnel: 11/10/2022 08:26 EDT No growth at 48 hours. PRELIMINARY REPORTS Preliminary Report [] Verified Date/Time/Personnel: 11/08/2022 12:43 EDT No growth to date STAINS GS [] Verified Date/Time/Personnel: 11/08/2022 04:38 EDT Unsedimented Rare Polymorphonuclear cells No organisms seen. Order Comments O1: Culture Cerebrospinal Fluid with Gram Stain (CSF Culture with Gram Stain) While SA drain remains in place Performing Locations *1: This test was performed at: [address], [address] [place] [address] ([place]) 11-10-2022 Note . MICRO - Microbiology PROCEDURE: Culture Anaerobe [*1] SOURCE: Shunt Fluid BODY SITE: COLLECTED DATE/TIME: 11/08/2022 23:15 EDT RECEIVED DATE/TIME: 11/09/2022 00:24 EDT START DATE/TIME: 11/09/2022 00:25 EDT FREE TEXT SOURCE: PRELIMINARY REPORTS Preliminary Report [] Verified Date/Time/Personnel: 11/10/2022 07:35 EDT No growth to date Performing Locations *1: This test was performed at: [address], [address] , [facility] ([place]) 11-09-2022 Note . MICRO - Microbiology PROCEDURE: Culture Cerebrospinal Fluid with Gram Stain [O1 *1] SOURCE: Cerebrospinal Fluid BODY SITE: Lumbar COLLECTED DATE/TIME: 11/06/2022 22:22 EDT RECEIVED DATE/TIME: 11/06/2022 22:31 EDT START DATE/TIME: 11/06/2022 22:31 EDT FREE TEXT SOURCE: SA Drain FINAL REPORTS Final Report [] Verified Date/Time/Personnel: 11/09/2022 08:18 EDT No growth at 48 hours. PRELIMINARY REPORTS Preliminary Report [] Verified Date/Time/Personnel: 11/07/2022 12:00 EDT No growth to date STAINS GS [] Verified Date/Time/Personnel: 11/06/2022 23:11 EDT Sedimented Rare Polymorphonuclear cells No organisms seen. Order Comments O1: Culture Cerebrospinal Fluid with Gram Stain (CSF Culture with Gram Stain) While SA drain remains in place Performing Locations *1: This test was performed at: [address], [address] , [facility] ([place]) 11-08-2022 Note . MICRO - Microbiology PROCEDURE: Culture Anaerobe [*1] SOURCE: Cerebrospinal Fluid BODY SITE: COLLECTED DATE/TIME: 11/07/2022 22:00 EDT RECEIVED DATE/TIME: 11/07/2022 23:13 EDT START DATE/TIME: 11/07/2022 23:13 EDT FREE TEXT SOURCE: PRELIMINARY REPORTS Preliminary Report [] Verified Date/Time/Personnel: 11/08/2022 07:45 EDT No growth to date Performing Locations *1: This test was performed at: [facility], [address] [place] [address], [id number] , [facility] ([place]) 11-07-2022 Note ORIGINAL PROCEDURE: 1. Lumbar drain catheter placement under fluoroscopic guidance PROFESSOR OF THEOLOGY: Dr. Rodriguez FLUOROSCOPY (min): 4.1 AIR KERMA DOSE (mGy): 74 AP; 216 mgy lateral ANESTHESIA: Moderate sedation was administered and monitored by dedicated nursing personnel supervised by the die machine operator. SEDATION TIME (min): 55 PUNCTURE LEVEL: L2-3 CATHETER TIP LEVEL: T10-11 MATERIALS: Lumbar drain kit, Fathom, Prolene CSF VOLUME REMOVED: 0 mL CSF APPEARANCE: Clear The procedure, risks, limitations, and alternatives were discussed. All questions answered. Written informed consent obtained. Maximum sterile barrier technique, hand hygiene, skin prep utilized. Percutaneous site was sterilely prepped and draped. Time out performed. Puncture site was selected under fluoroscopy. Local anesthesia was administered at the puncture site. A needle was advanced into the thecal sac under fluoroscopic guidance. Position was confirmed with flow of CSF from the needle. Catheter was advanced through the Tuohy needle to the aforementioned level. The catheter was stitched to the skin. Fluoroscopy demonstrates no kinking of the delicate catheter. Aspiration yields CSF confirming patent catheter. Sterile dressing placed. COMPLICATIONS: None EBL: Minimal CONDITION: Stable, unchanged. COMPARISON: None HISTORY: ORDERING SYSTEM PROVIDED HISTORY: Reason for Exam: Cervical CSF leak s/p ACDF IMPRESSION: 1. Successful lumbar drain catheter placement. Interpreted by: Stew Rodriguez MD Preliminary Report By: Stew Rodriguez MD Electronically signed By Stew Rodriguez MD Dictated Date: 11/07/2022 4:58:22 PM Prelim Date: 11/07/2022 4:59:38 PM Sign Date: 11/07/2022 4:59:38 PM Ordering Provider: RICKI KEITH [facility] ([place]) 11-07-2022 Note . MICRO - Microbiology PROCEDURE: Culture Anaerobe [*1] SOURCE: Cerebrospinal Fluid BODY SITE: Lumbar COLLECTED DATE/TIME: 11/06/2022 22:22 EDT RECEIVED DATE/TIME: 11/06/2022 22:35 EDT START DATE/TIME: 11/06/2022 22:36 EDT FREE TEXT SOURCE: SA drain PRELIMINARY REPORTS Preliminary Report [] Verified Date/Time/Personnel: 11/07/2022 07:38 EDT No growth to date Performing Locations *1: This test was performed at: [address], [facility] , [facility] ([place]) 08-06-2022 History of Present illness Narrative On a scale of 0 to 10, the patient rates the pain at 7.Pain Location: Neck Pain and rt side.Pain Quality: Aching and numb and tingling.Pain Radiation: Right Arm.Sensory/ Motor: Numbness and rt hand totally numb, numbness and tingling in rt arm.Timing/Duration: Constant.Controlled Substance:I have personally reviewed the [place] report for EITAN VOGEL. I have considered the risks of abuse, dependence, addiction and diversion.Exacerbating Factors: same no matter what .Alleviating Factors: None.Goals for Pain Management:Oswestry Disability Index evaluation tool completed by patient score 13. [facility]: 07-05-2022 Note PROCEDURE DETAILS Preoperative Diagnosis: Radiculopathy, cervical region, M54.12 Postoperative Diagnosis: Radiculopathy, cervical region, M54.12 Surgeon: Clovis Malave Resident/Fellow/Other Receiving Lead: None of these were associated with this case Procedure: 1. C6-C7 BARRY Anesthesia: No anesthesiologist associated with this case Estimated Blood Loss: 0 Findings: NA Additional Details: The patient has a greater than 3-month history of severe neck and arm pain. The patient has failed conservative management with treatments, exercise therapy and medications. The pain significantly interrupts the patient's physical function.nths. Operative Report: Procedure: Interlaminar cervical epidural steroid injection under fluoroscopic guidance at the C6-C7 interspace Diagnosis: Cervical radiculopathy Solution: 1 mL of Kenalog 40 mg, 0.5 mL of lidocaine 2%, 2.5 mL normal saline, 4 mL total volume Total contrast: 3 mL Omnipaque Anesthesia: Local Complications: None After informed consent was obtained, the patient was brought to the OR and placed in the prone position. The area in question was prepped and draped in sterile fashion. An AP fluoroscopic view of the cervical spine was obtained and after 3 mL of lidocaine 1% was injected into the skin, a 17-gauge Touhy needle was inserted into the skin and advanced toward the posterior lamina of the C7 vertebrae under intermittent fluoroscopic guidance. The needle was then walked off superiorly into the C6-C7 interspace. The epidural space was identified via loss of resistance to air. Proper needle position was confirmed by AP and contralateral oblique fluoroscopic views. Contrast was administered under live fluoroscopy in both views and demonstrated appropriate epidural uptake and the absence of any intravascular or intrathecal spread. The local anesthetic steroid solution was then injected incrementally. The needle was removed. Bleeding was minimal. The patient tolerated the procedure well and was transferred to the recovery room in good condition. Attestation: Note Completion: Attending AttestationI performed the procedure without a resident Electronic Signatures: Clovis Malave) (Signed 05-Jul-2022 17:07) Authored: Post-Operative Note, Chart Review, Note Completion Last Updated: 05-Jul-2022 17:07 by Clovis Malave) [facility] 05-28-2022 History of Present illness Narrative On a scale of 0 to 10, the patient rates the pain at 4.Pain Location: Neck Pain and R.Pain Quality: Aching, Dull and annoying .Pain Radiation: R amr/hand.Sensory/ Motor: Numbness and in the right arm and right hand.Timing/Duration: Intermittent and > 12 weeks duration.Controlled Substance:I have personally reviewed the [place]ARRS report for EITAN VOGEL. I have considered the risks of abuse, dependence, addiction and diversion.Exacerbating Factors: weightbearing and lying flat on his stomach.Alleviating Factors: Cold Therapy, Exercise, Medications, Moist Heat, Repositioning, Other: ___.24 Hour Behavior:Symptoms are the same in the am.Symptoms are the same as the day progresses.Symptoms are worse in the pm.Symptoms are worse when lying down. dependent on position.Effect of Movement on Symptoms:Bending doesn't change symptoms.Lying makes symptoms worse.Rising from sitting doesn't change symptoms.Sitting doesn't change symptoms.Standing makes symptoms worse.Rising from supine to sitting makes symptoms better.Turning makes symptoms worse.Walking doesn't change symptoms.Twisting makes symptoms worse.Weather doesn't change symptoms.Coughing/sneezing doesn't change symptoms. avoids. avoids.Lifting: Same.Patient Education:Inj. education completed written and verbally. [facility] Work Phone: 03-22-2022 Note HNO ID: [id number] Author: Mitra Rob, DO Service: ? Author Type: Physician Type: Progress Notes Filed: 04/02/2022 2:59 PM Note Text: VIRTUAL VISIT PROGRESS NOTE This is a virtual visit using [employer] video visit. It required patient-provider interaction for the medical decision making as documented below. Eitan Vogel is a 41 year old male seen for cervical mri follow up. States constant numbness tingling in entire arm and hand. Had previous emg, see chart, never had cervical injections, has seen chiropractor in past for traction. HISTORY REVIEWED (electronic chart updated): PAST MEDICAL HISTORY Diagnosis Date Acute cholecystitis 07/11/2016 Attention deficit disorder without mention of hyperactivity Depression Epigastric abdominal pain 07/10/2016 Hypertension PAST SURGICAL HISTORY Procedure Laterality Date ARTHROSCOPY KNEE DIAGNOSTIC W/WO SYNOVIAL BX SPX 09/17/2005 Arthroscopy, knee Right EGD TRANSORAL BIOPSY SINGLE/MULTIPLE 07/10/2016 KNEE SURGERY HX Right 03/2006 KNEE SURGERY HX Right 06/2008 KNEE SURGERY HX Right 07/2009 LAPAROSCOPY SURG CHOLECYSTECTOMY 07/11/2016 TONSILLECTOMY PRIMARY/SECONDARY Tonsillectomy FAMILY HISTORY Problem Relation Age of Onset None Mother None Father unknown Colon Cancer Maternal Grandmother Social History Tobacco Use Smoking status: Never Smokeless tobacco: Current Tobacco comments: occassionally Substance Use Topics Alcohol use: No Alcohol/week: 30.0 standard drinks Drug use: No Current Outpatient Medications Medication Sig amLODIPine (NORVASC) 5 mg tablet Take 5 mg by mouth once daily. oxyCODONE-acetaminophen (PERCOCET) 5-325 mg tablet Take 1 tablet by mouth every 4 hours as needed for Pain. lisdexamfetamine (VYVANSE) 60 mg capsule Take 60 mg by mouth once daily. venlafaxine ER (EFFEXOR XR) 75 mg 24 hr capsule Take 75 mg by mouth once daily. ketorolac (TORADOL) 10 mg tablet Take 10 mg by mouth every 6 hours as needed for Pain. omeprazole (PRILOSEC) 20 mg capsule Take 20 mg by mouth once daily. ondansetron (ZOFRAN, HYDROCHLORIDE,) 4 mg tablet Take 4 mg by mouth every 8 hours as needed. oxyCODONE-acetaminophen (PERCOCET 10) 10-325 mg tablet Take 1 tablet by mouth every 4 hours as needed for Pain. No current facility-administered medications for this visit. ALLERGIES Allergen Reactions Amoxicillin Swelling has had keftabs since with no problems Bees SWELLS UP AT SITE Fentanyl Intolerance nervous,sweating,agitated Or Meds [Other] Intolerance uncertain, but preop meds given during anesthesia made anxious and diaphoretic REVIEW OF SYSTEMS: GENERAL: feeling well without fatigue, no recent change in weight Neck pain with radiculopathy PHYSICAL EXAMINATION: VIDEO EXAM: (if completed, performed via video enabled technology) No exam performed Last MRI Cervical Spine - Impression Only MRI CERVICAL SPINE WO IVCON Exam End: 03/15/2022 8:34 AM (Final result) Impression: IMPRESSION: Cervical spondylosis, most significant at C5-6 and C6-7, as detailed. Anatomic Variant: None. Assume 7 cervical vertebrae with counting from the craniocervical junction. ... ASSESSMENT: (M47.812) Cervical spondylosis (primary encounter diagnosis) PLAN: Bc of spondylosis will defer to affirmative action specialist whether injections vs traction would be beneficial at this time There are no Patient Instructions on file for this visit. I spent a total of 15 minutes on the date of the service which included preparing to see the patient, [id number] patient care, completing clinical documentation, obtaining and/or reviewing separately obtained history, independently interpreting results (not separately reported), communicating results to the patient/family/caregiver, and care coordination (not separately reported) Consult spine for neck evaluation Consult PT Mitra Rob DO [facility] 03-22-2022 History of Present illness Narrative VIRTUAL VISIT PROGRESS NOTE This is a virtual visit using [employer] video visit. It required patient-provider interaction for the medical decision making as documented below. Eitan Vogel is a 41 year old male seen for cervical mri follow up. States constant numbness tingling in entire arm and hand. Had previous emg, see chart, never had cervical injections, has seen chiropractor in past for traction. HISTORY REVIEWED (electronic chart updated): PAST MEDICAL HISTORY Diagnosis Date Acute cholecystitis 07/11/2016 Attention deficit disorder without mention of hyperactivity Depression Epigastric abdominal pain 07/10/2016 Hypertension PAST SURGICAL HISTORY Procedure Laterality Date ARTHROSCOPY KNEE DIAGNOSTIC W/WO SYNOVIAL BX SPX 09/17/2005 Arthroscopy, knee Right EGD TRANSORAL BIOPSY SINGLE/MULTIPLE 07/10/2016 KNEE SURGERY HX Right 03/2006 KNEE SURGERY HX Right 06/2008 KNEE SURGERY HX Right 07/2009 LAPAROSCOPY SURG CHOLECYSTECTOMY 07/11/2016 TONSILLECTOMY PRIMARY/SECONDARY <AGE 11 Tonsillectomy FAMILY HISTORY Problem Relation Age of Onset None Mother None Father unknown Colon Cancer Maternal Grandmother Social History Tobacco Use Smoking status: Never Smokeless tobacco: Current Tobacco comments: occassionally Substance Use Topics Alcohol use: No Alcohol/week: 30.0 standard drinks Drug use: No Current Outpatient Medications Medication Sig amLODIPine (NORVASC) 5 mg tablet Take 5 mg by mouth once daily. oxyCODONE-acetaminophen (PERCOCET) 5-325 mg tablet Take 1 tablet by mouth every 4 hours as needed for Pain. lisdexamfetamine (VYVANSE) 60 mg capsule Take 60 mg by mouth once daily. venlafaxine ER (EFFEXOR XR) 75 mg 24 hr capsule Take 75 mg by mouth once daily. ketorolac (TORADOL) 10 mg tablet Take 10 mg by mouth every 6 hours as needed for Pain. omeprazole (PRILOSEC) 20 mg capsule Take 20 mg by mouth once daily. ondansetron (ZOFRAN, HYDROCHLORIDE,) 4 mg tablet Take 4 mg by mouth every 8 hours as needed. oxyCODONE-acetaminophen (PERCOCET 10) 10-325 mg tablet Take 1 tablet by mouth every 4 hours as needed for Pain. No current facility-administered medications for this visit. ALLERGIES Allergen Reactions Amoxicillin Swelling has had keftabs since with no problems Bees SWELLS UP AT SITE Fentanyl Intolerance nervous,sweating,agitated Or Meds [Other] Intolerance uncertain, but preop meds given during anesthesia made anxious and diaphoretic REVIEW OF SYSTEMS: GENERAL: feeling well without fatigue, no recent change in weight Neck pain with radiculopathy PHYSICAL EXAMINATION: VIDEO EXAM: (if completed, performed via video enabled technology) No exam performed Last MRI Cervical Spine - Impression Only MRI CERVICAL SPINE WO IVCON Exam End: 03/15/2022 8:34 AM (Final result) Impression: IMPRESSION: Cervical spondylosis, most significant at C5-6 and C6-7, as detailed. Anatomic Variant: None. Assume 7 cervical vertebrae with counting from the craniocervical junction. ... ASSESSMENT: (M47.812) Cervical spondylosis (primary encounter diagnosis) PLAN: Bc of spondylosis will defer to affirmative action specialist whether injections vs traction would be beneficial at this time There are no Patient Instructions on file for this visit. I spent a total of 15 minutes on the date of the service which included preparing to see the patient, [id number] patient care, completing clinical documentation, obtaining and/or reviewing separately obtained history, independently interpreting results (not separately reported), communicating results to the patient/family/caregiver, and care coordination (not separately reported) Consult spine for neck evaluation Consult PT Mitra Rob DO documented in this encounter [facility] 03-15-2022 Note HNO ID: [id number] Author: RT Cassandra(Geri) Service: ? Author Type: Technologist Type: Progress Notes Filed: 03/15/2022 8:05 AM Note Text: Radiology Service Progress Note PATIENT NAME: Eitan Vogel DATE OF SERVICE: March 15, 2022 TIME: 8:05 AM PATIENT IDENTITY VERIFICATION COMPLETED USING TWO (2) IDENTIFIERS: Name and Date of confirmed by patient verbally. FALL SCREENING: Has the patient had 2 falls in the last year or 1 fall with injury or currently using an Ambulatory Assistive Device (Walker, Cane, Wheelchair, Crutches, etc.)? No PATIENT GENDER DATA: Male PATIENT RELEVANT IMPLANT DATA REVIEWED: Yes RADIOLOGY DEPARTMENT: MR; Exam(s) Completed: Spine: Cervical spine PERIPHERAL IV DATA: Not applicable SIGNED BY: RT Cassandra(R) March 15, 2022 8:05 AM [facility] 02-15-2022 Note HNO ID: [id number] Author: Taina Gonzales DO Service: ? Author Type: Physician Type: Progress Notes Filed: 02/15/2022 8:18 AM Note Text: UNIVERSAL PROTOCOL / SAFETY CHECKLIST Procedure to be Performed: EMG Sign In: A Moment of CARE was completed. Personnel directly involved with the procedure wore the appropriate PPE (Personal Protective Equipment). Patient/Surrogate Stated/Verified: PATIENT VERIFIED(optional for EMERGENT procedures): Patient name, Date of , Relevant allergies, and The intended procedure Time Out Communication: Intended patient and procedure match the source documents. Correct side/site marked and visible. Sign Out: SIGN OUT (optional for EMERGENT procedures): Post-procedure follow-up management communicated and Plan of Care Visit completed when applicable. Corinne Gonzales DO [facility] 02-15-2022 History of Present illness Narrative UNIVERSAL PROTOCOL / SAFETY CHECKLIST Procedure to be Performed: EMG Sign In: A Moment of CARE was completed. Personnel directly involved with the procedure wore the appropriate PPE (Personal Protective Equipment). Patient/Surrogate Stated/Verified: PATIENT VERIFIED(optional for EMERGENT procedures): Patient name, Date of , Relevant allergies, and The intended procedure Time Out Communication: Intended patient and procedure match the source documents. Correct side/site marked and visible. Sign Out: SIGN OUT (optional for EMERGENT procedures): Post-procedure follow-up management communicated and Plan of Care Visit completed when applicable. Corinne Gonzales DO documented in this encounter [facility] 12-26-2021 Note HNO ID: [id number] Author: Mitra Rob DO Service: ? Author Type: Physician Type: Progress Notes Filed: 12/27/2021 1:44 PM Note Text: Reason for Visit/Chief Complaint Eitan Vogel is a 41 year old male who presents today for a new evaluation of following complaint: Patient presents with: Right Wrist - New, Pain History of Present Illness: PAIN EVALUATION 12/26/2021 0850 Pain Level: 4 Pain Location: Wrist-Right Description: Numbness;Tingling;Aching;Dull Duration Amount of Time: 2 Duration Units: Years Frequency: Intermittent Intervention/Comfort measure: Reposition;Relaxation;Other: See comment;Medication wrist brace, HPI: Eitan Vogel is a 41 year old male presenting today with right wrist pain. Patient has been experiencing pain/numbness/tingling for about 2 years now. He noticed pain while playing softball, now pain is exacerbated while typing at work. Ulnar side pain. Pain history is noted as above. Previous Treatments: Ice: Yes Heat: Yes Brace: Yes, wrist splint NSAIDs: Yes, PRN Injections: No Surgeries: No Physical Therapy: No Review of Systems: Patient did not have, and does not currently have, any weight loss, malaise, fever, chills, headache, chest pain, chest pressure, palpitations, cough, shortness of breath, orthopnea, paroxsymal nocturnal dyspnea, nausea, vomiting, diarrhea, constipation, melena, hematochezia, urinary difficulties, prolonged bleeding, easily bruising, heat or cold intolerance, new onset joint pain or swelling, new onset extremity weakness or numbness, new onset auditory or visual disturbances, lightheadedness, dizziness, partial loss of consciousness or full loss of consciousness. Current Outpatient Medications on File Prior to Visit Medication Sig - amLODIPine (NORVASC) 5 mg tablet Take 5 mg by mouth once daily. - venlafaxine ER (EFFEXOR XR) 75 mg 24 hr capsule Take 75 mg by mouth once daily. - oxyCODONE-acetaminophen (PERCOCET) 5-325 mg tablet Take 1 tablet by mouth every 4 hours as needed for Pain. - lisdexamfetamine (VYVANSE) 60 mg capsule Take 60 mg by mouth once daily. - ketorolac (TORADOL) 10 mg tablet Take 10 mg by mouth every 6 hours as needed for Pain. - omeprazole (PRILOSEC) 20 mg capsule Take 20 mg by mouth once daily. - ondansetron (ZOFRAN, HYDROCHLORIDE,) 4 mg tablet Take 4 mg by mouth every 8 hours as needed. - oxyCODONE-acetaminophen (PERCOCET 10) 10-325 mg tablet Take 1 tablet by mouth every 4 hours as needed for Pain. No current facility-administered medications on file prior to visit. ALLERGIES Allergen Reactions - Amoxicillin Swelling has had keftabs since with no problems - Bees SWELLS UP AT SITE - Fentanyl Intolerance nervous,sweating,agitated - Or Meds [Other] Intolerance uncertain, but preop meds given during anesthesia made anxious and diaphoretic Physical Exam: Vitals: There were no vitals taken for this visit. Psych: Pleasant, good affect and mood General Appearance: Well appearing, alert, in no acute distress, well-hydrated, well nourished.. Skin: Skin color, texture, turgor normal, no suspicious rashes or lesions. Peripheral Pulses: Normal. Neurologic: Gait normal. Reflexes normal and symmetric. Sensation grossly intact.. Lymph Nodes: No cervical lymphadenopathy, No supraclavicular lymphadenopathy, No axillary lymphadenopathy. and No inguinal lymphadenopathy.. Respiratory: No recent pulmonary infection, hemoptysis, chronic cough, or shortness of breath at rest Rheumatologic: Joint deformities: right wrist pain Right Hand Exam Right hand exam is normal. Tenderness The patient is experiencing no tenderness. Range of Motion The patient has normal right wrist ROM. Wrist Extension: normal Flexion: normal Pronation: normal Supination: normal Muscle Strength The patient has normal right wrist strength. Tests Phalen?s Sign: negative Tinel's sign (median nerve): negative Shadia's test: negative Other Erythema: absent Sensation: normal Pulse: present Comments: B/l med//rad/ax nerves intact Weakness in dab right ulna Dec 2 pt discrimination Left Hand Exam Left hand exam is normal. Tenderness The patient is experiencing no tenderness. Range of Motion The patient has normal left wrist ROM. Wrist Extension: normal Flexion: normal Pronation: normal Supination: normal Muscle Strength The patient has normal left wrist strength. Tests Phalen?s Sign: negative Tinel's sign (median nerve): negative Shadia's test: negative Other Erythema: absent Sensation: normal Pulse: present Imaging: Last XR Hand/Finger - Impression Only No resulted procedures found. 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 [facility] 12-26-2021 Note HNO ID: [id number] Author: LAMBERT Flanagan Service: Radiology Author Type: Technologist Type: Progress Notes Filed: 12/26/2021 8:41 AM Note Text: Radiology Service Progress Note PATIENT NAME: Eitan Vogel DATE OF SERVICE: December 26, 2021 TIME: 8:39 AM PATIENT IDENTITY VERIFICATION COMPLETED USING TWO (2) IDENTIFIERS: Name and Date of confirmed by patient verbally. FALL SCREENING: Has the patient had 2 falls in the last year or 1 fall with injury or currently using an Ambulatory Assistive Device (Walker, Cane, Wheelchair, Crutches, etc.)? No PATIENT GENDER DATA: Male PATIENT RELEVANT IMPLANT DATA REVIEWED: Not Applicable RADIOLOGY DEPARTMENT: General X-ray: Exam(s) Completed: Upper Extremity X-Ray(s): Wrist, right PERIPHERAL IV DATA: Not applicable SIGNED BY: LAMBERT Flanagan December 26, 2021 8:39 AM [facility] 12-26-2021 History of Present illness Narrative Images from the original note were not included. Reason for Visit/Chief Complaint Eitan Vogel is a 41 year old male who presents today for a new evaluation of following complaint: Patient presents with: Right Wrist - New, Pain History of Present Illness: PAIN EVALUATION 12/26/2021 0850 Pain Level: 4 Pain Location: Wrist-Right Description: Numbness;Tingling;Aching;Dull Duration Amount of Time: 2 Duration Units: Years Frequency: Intermittent Intervention/Comfort measure: Reposition;Relaxation;Other: See comment;Medication wrist brace, HPI: Eitan Vogel is a 41 year old male presenting today with right wrist pain. Patient has been experiencing pain/numbness/tingling for about 2 years now. He noticed pain while playing softball, now pain is exacerbated while typing at work. Ulnar side pain. Pain history is noted as above. Previous Treatments: Ice: Yes Heat: Yes Brace: Yes, wrist splint NSAIDs: Yes, PRN Injections: No Surgeries: No Physical Therapy: No Review of Systems: Patient did not have, and does not currently have, any weight loss, malaise, fever, chills, headache, chest pain, chest pressure, palpitations, cough, shortness of breath, orthopnea, paroxsymal nocturnal dyspnea, nausea, vomiting, diarrhea, constipation, melena, hematochezia, urinary difficulties, prolonged bleeding, easily bruising, heat or cold intolerance, new onset joint pain or swelling, new onset extremity weakness or numbness, new onset auditory or visual disturbances, lightheadedness, dizziness, partial loss of consciousness or full loss of consciousness. Current Outpatient Medications on File Prior to Visit Medication Sig amLODIPine (NORVASC) 5 mg tablet Take 5 mg by mouth once daily. venlafaxine ER (EFFEXOR XR) 75 mg 24 hr capsule Take 75 mg by mouth once daily. oxyCODONE-acetaminophen (PERCOCET) 5-325 mg tablet Take 1 tablet by mouth every 4 hours as needed for Pain. lisdexamfetamine (VYVANSE) 60 mg capsule Take 60 mg by mouth once daily. ketorolac (TORADOL) 10 mg tablet Take 10 mg by mouth every 6 hours as needed for Pain. omeprazole (PRILOSEC) 20 mg capsule Take 20 mg by mouth once daily. ondansetron (ZOFRAN, HYDROCHLORIDE,) 4 mg tablet Take 4 mg by mouth every 8 hours as needed. oxyCODONE-acetaminophen (PERCOCET 10) 10-325 mg tablet Take 1 tablet by mouth every 4 hours as needed for Pain. No current facility-administered medications on file prior to visit. ALLERGIES Allergen Reactions Amoxicillin Swelling has had keftabs since with no problems Bees SWELLS UP AT SITE Fentanyl Intolerance nervous,sweating,agitated Or Meds [Other] Intolerance uncertain, but preop meds given during anesthesia made anxious and diaphoretic Physical Exam: Vitals: There were no vitals taken for this visit. Psych: Pleasant, good affect and mood General Appearance: Well appearing, alert, in no acute distress, well-hydrated, well nourished.. Skin: Skin color, texture, turgor normal, no suspicious rashes or lesions. Peripheral Pulses: Normal. Neurologic: Gait normal. Reflexes normal and symmetric. Sensation grossly intact.. Lymph Nodes: No cervical lymphadenopathy, No supraclavicular lymphadenopathy, No axillary lymphadenopathy. and No inguinal lymphadenopathy.. Respiratory: No recent pulmonary infection, hemoptysis, chronic cough, or shortness of breath at rest Rheumatologic: Joint deformities: right wrist pain Right Hand Exam Right hand exam is normal. Tenderness The patient is experiencing no tenderness. Range of Motion The patient has normal right wrist ROM. Wrist Extension: normal Flexion: normal Pronation: normal Supination: normal Muscle Strength The patient has normal right wrist strength. Tests Phalen s Sign: negative Tinel's sign (median nerve): negative Shadia's test: negative Other Erythema: absent Sensation: normal Pulse: present Comments: B/l med//rad/ax nerves intact Weakness in dab right ulna Dec 2 pt discrimination Left Hand Exam Left hand exam is normal. Tenderness The patient is experiencing no tenderness. Range of Motion The patient has normal left wrist ROM. Wrist Extension: normal Flexion: normal Pronation: normal Supination: normal Muscle Strength The patient has normal left wrist strength. Tests Phalen s Sign: negative Tinel's sign (median nerve): negative Shadia's test: negative Other Erythema: absent Sensation: normal Pulse: present Imaging: Last XR Hand/Finger - Impression Only No resulted procedures found. Last XR Wrist - Impression Only XR WRIST GENERAL 3V PA/LAT/OBL RIGHT Exam End: 12/26/2021 8:38 AM (Final result) Impression: IMPRESSION: Negative Software Engineer Kernel: [email or web address] Transcribe Date/Time: Dec 26 2021 8:44A Dictated by : MARIA ELENA ALARCON MD... Complete Results Assessment and Plan: Impression: Encounter Diagnosis ICD-10-CM 1. Ulnar neuritis, right G56.21 EMG(NEURO/NI) Plan: Limit activities as discussed Today, in detail, through a thorough evaluation, we discussed possible etiologies of pain and our plans for further diagnostic and therapeutic interventions. We discussed strategies for decreasing pain and improving strength, stability and motion. Patient's questions were answered in detailed. Patient verbalizes understanding and agrees with the treatment plan as discussed. emg Night splints b complex vitamin nsaids Dr oliveros referral for us guided nerve injection Follow up after both telehealth visit after emg to go over results documented in this encounter [facility] 12-26-2021 History of Present illness Narrative Radiology Service Progress Note PATIENT NAME: Eitan Vogel DATE OF SERVICE: December 26, 2021 TIME: 8:39 AM PATIENT IDENTITY VERIFICATION COMPLETED USING TWO (2) IDENTIFIERS: Name and Date of confirmed by patient verbally. FALL SCREENING: Has the patient had 2 falls in the last year or 1 fall with injury or currently using an Ambulatory Assistive Device (Walker, Cane, Wheelchair, Crutches, etc.)? No PATIENT GENDER DATA: Male PATIENT RELEVANT IMPLANT DATA REVIEWED: Not Applicable RADIOLOGY DEPARTMENT: General X-ray: Exam(s) Completed: Upper Extremity X-Ray(s): Wrist, right PERIPHERAL IV DATA: Not applicable SIGNED BY: LAMBERT Flanagan December 26, 2021 8:39 AM documented in this encounter [facility] documented as of this encounter (statuses as of 12/27/2021) [facility] History of Past illness Narrative* Problem Noted Date Resolved Date Unspecified internal derangement of knee 006 10/15/2005 Unspecified internal derangement of knee 006 09/24/2005 Tear of medial cartilage or meniscus of knee, cu rrent 08/26/2005 09/24/2005 documented as of this encounter (statuses as of 12/27/2021) [facility] History of Past illness Narrative* Problem Noted Date Resolved Date Unspecified internal derangement of knee 006 10/15/2005 Unspecified internal derangement of knee 2 006 09/24/2005 Tear of medial cartilage or meniscus of knee, cu rrent 08/26/2005 09/24/2005 documented as of this encounter (statuses as of 02/15/2022) [facility] History of Past illness Narrative* Problem Noted Date Resolved Date Unspecified internal derangement of knee 006 10/15/2005 Unspecified internal derangement of knee 18/2 006 09/24/2005 Tear of medial cartilage or meniscus of knee, cu rrent 08/26/2005 09/24/2005 documented as of this encounter (statuses as of 04/02/2022) [facility]ments Appointment Date:02/12/2023 08:30:00 AM Scheduled Provider:TAINA ORR DO Location:[facility] Appointment Type:PC OV Appointment Date:11/19/2023 08:00:00 AM Scheduled Provider:TAINA ORR DO Location:[facility] Appointment Type:PC OV Controlled Medication [facility] Evaluation note* Diagnosis Pain Generalized pain [facility] Diagnosis Ulnar neuritis, right- Primary [facility]* Diagnosis Radiculopathy, cervical region- Primary Brachial neuritis or radiculitis nos Ulnar neuritis, right Paresthesia of skin Disturbance of skin sensation [facility] Diagnosis Cervical spondylosis- Primary Cervical spondylosis without myelopathy [facility]* On a scale of 0 to 10, the patient rates the pain at 7. * Pain Location: Neck Pain and rt side. * Pain Quality: Aching and numb and tingling. * Pain Radiation: Right Arm. * Sensory/ Motor: Numbness and rt hand totally numb, numbness and tingling in rt arm. * Timing/Duration: Constant. * Controlled Substance: * I have personally reviewed the [place] report for EITAN VOGEL. I have considered the risks of abuse, dependence, addiction and diversion. * Exacerbating Factors: same no matter what . * Alleviating Factors: None. * Goals for Pain Management: * Oswestry Disability Index evaluation tool completed by patient score 13. [facility] Work Phone: Hospital course Narrative No data available for this section [facility] Discharge instructions No data available for this section [facility] Progress note No data available for this section [facility] Reason for referral (narrative)* Diagnostic Procedure Only (Routine) - Closed Specialty Diagnoses / Procedures Referred By Contac t Referred To Contact XR IMAGING Diagnoses Pain Procedures XR WRIST GENERAL 3V PA/LAT/OBL RIGHT RADEX WRIST COMPLETE MINIMUM 3 VIEWS Mitra Rob DO [address] [place] [address] Xr Imaging Referral ID Status Reason Start Date Expiration Date V isits Requested Visits Authorized [id number] Closed Auto-Generate d Referral 11/30/2021 12/30/2022 1 1 [facility] for referral (narrative)* Outpatient Procedure (Routine) - Authorized Specialty Diagnoses / Procedures Referred By Loreta yusuf Referred To Contact [facility] Diagnoses Ulnar neuritis, right Procedures EMG(NEURO/NI) NERVE CONDUCTION STUDIES 9-10 STUDIES Mitra Rob DO [address] [place] [address] [facility] [address] [place] [address] Referral ID Status Reason Start Date Expiration Date Visits Requested Visits Authorized [id number] Authorized Auto-Generat ed Referral 12/26/2021 12/26/2022 1 1 [facility] for visit Narrative* Diagnostic Procedure Only (Routine) - Closed Specialty Diagnoses / Procedures Referred By Loreta yusuf Referred To Contact XR IMAGING Diagnoses Pain Procedures XR WRIST GENERAL 3V PA/LAT/OBL RIGHT RADEX WRIST COMPLETE MINIMUM 3 VIEWS Mitra Rob DO [address] [place] [address] Xr Imaging Referral ID Status Reason Start Date Expiration Date V isits Requested Visits Authorized [id number] Closed Auto-Generate d Referral 11/30/2021 12/30/2022 1 1 [facility] Advance Directives Documents on File Type Date Recorded 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 Advance Directive(s) 07/11/2016 9:10 AM Summary Purpose Family History No Family History Records FoundNo Family History Records FoundNo Family History Records FoundNo Family History Records FoundNo Family History Records Found Reason for Referral Specialty Diagnoses / Procedures Referred By Loreta yusuf Referred To Contact [facility] Diagnoses Cervical spondylosis Procedures CONSULT TO PHYSICAL THERAPY PHYSICAL THERAPY EVALUATION HIGH COMPLEX 45 MINS Mitra Rob DO [address] [place] [address] [facility] [address] [address] Referral ID Status Reason Start Date Expiration Date Visits Requested Visits Authorized [id number] Pending Review Auto-Generat ed Referral 04/02/2022 03/22/2023 1 1 Chief Complaint * NPV for R sided neck pain with radiation to R arm and hand. Also numbness and tingling in R arm/hand. 09/09 today. Pain started approx 5 years ago. No injury. Pain has increased over the past year. Xrays were done at [facility] and [facility] in 2021. No pain medications. Hadan MRI 03/2021 of Cervical spine but patient states that they were requesting a second MRI due to not being able to see the results of the first one. They are seeking a second opinion from the spine surgeon they saw. They recommended injections vs spine surgery. Ice and heat are not helpful for thepatient. Patient states that he does at home stretches. Patient has been to a chiropractor but thiswas not helpful- he felt no better after seeing them. * This is a 42-year-old male here for a new patient appointment for a chief complaint of right-sided neck and arm pain. He reports he has had the symptoms for 5 years with no obvious cause. He reports the pain starts in the right side of his neck and radiates down the right shoulder into the arm and fingers of the right hand. He denies any left-sided symptoms. He denies any leg pain. He denies problems with his balance or loss of bladder or bowel control. He will have intermittent numbness and weakness of the right arm and hand. He has tried chiropractic treatments, home stretching exercises, and dry needling with no benefit. He had seen an orthopedist a while back and they did a shoulder injection which did not offer any relief. He has tried NSAIDs with no relief. He reports the pain interrupts his function during the day. He had seen a spine surgeon a month ago and they discussed surgery but the surgeon wanted an updated MRI. The surgeon did not feel further physical therapy would be of benefit but did think cervical epidural injections would be an appropriate option so he was referred here. He denies additional neurologic symptoms. * The patient's past medical, social, and family history along with medications and allergies are available and were reviewed. * FUV for C6-7 BARRY on 07-05-22 no relief with injection. Today reports having rt side neck pain that radiates into his rt arm also has numbness and tingling in rt arm, describes as a dull ache with numbness and tingling rates pain 7/10 constant pain. * This is a 42-year-old male here for a follow-up appointment for chief complaint of right-sided neckshoulder and arm pain. At his last visit he underwent a cervical epidural steroid injection at [facility]. He reports some moderate short-term relief but his symptoms today are much the same as they have been. The pain starts in the base of the neck radiates into the shoulder and he will have numbness and tingling going down the right arm into the first second and fifth digits. He also has pain with motion of the right shoulder. He has been evaluated by spine surgery as well as orthopedic surgery. He has failed trials of nursing care partner physical therapy NSAIDs and had an EMG which showed cervical radiculopathy. He was evaluated by Dr. Polk for potential spine surgery prior to his first visithere who felt that he would need a new cervical MRI prior to surgical intervention. Patient has hadthe symptoms now for over 5 years and they significantly impact his physical function in daily life. He would like to move forward with surgical intervention. He denies loss of bladder or bowel control. * The patient's past medical, social, and family history along with medications and allergies are available and were reviewed. Additional Source Comments Source Comments (unrecognize d section and content) In the event this informatio n is protected by the Federal Confidentiality of Alcohol and Drug Abuse Patient Records regulations: The Federal rules restrict any use of the information to criminally investigate or prosecute any alcohol or drug abuse patient.[facility] the event this information is protected by the Federal Confidentiality of Alcohol and Drug Abuse Patient Records regulations: The Federal rules restrict any use of the information to criminally investigate or prosecute any alcohol or drug abuse patient.[facility] the event this information is protected by the Federal Confidentiality of Alcohol and Drug Abuse Patient Records regulations: The Federal rules restrict any use of the information to criminally investigate or prosecute any alcohol or drug abuse patient.[facility] the event this information is protected by the Federal Confidentiality of Alcohol and Drug Abuse Patient Records regulations: The Federal rules restrict any use of the information to criminally investigate or prosecute any alcohol or drug abuse patient.[facility] Care Teams (unrecognized sec tion and content) Care Team Personnel Name: TAINA ORR DO Position: P4 Physician - Primary Care Member Role: Primary Care Physician Address: Address: [address] [place] [address] Care Team Related Persons Name: 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 Relationship Specialty Start Date End Date Taina Orr PCP - General Family Practice 07/08/16 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 Relationship Specialty Start Date End Date Taina Orr PCP - General Family Practice 07/08/16 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 Relationship Specialty Start Date End Date Taina Orr PCP - General Family Medicine 07/08/16 Reason for Visit (unrecogniz ed section and content) Reason Onset Date Comments EMG 02/15/2022 Specialty Diagnoses / Procedures Referred By Loreta t Referred To Contact [facility] Diagnoses Ulnar neuritis, right Procedures EMG(NEURO/NI) NERVE CONDUCTION STUDIES 9-10 STUDIES Mitra Rob DO [address] [place] [address] [facility] [address] [place] [address] Referral ID Status Reason Start Date Expiration Date V isits Requested Visits Authorized [id number] Closed Auto-Generate d Referral 12/26/2021 12/26/2022 1 1 Reason Comments Follow Up (unrecognized sect ion and content) No Status Records FoundNo Status Records FoundNo Status Records FoundNo Status Records FoundNo Status Records Found INFORMATION SOURCE (unrecogn ized section and content) DATE CREATED AUTHOR AUTHOR'S ORGANIZ ATION 04/03/2022 [facility] DATE CREATED AUTHOR AUTHOR'S ORGANIZ ATION 08/08/2022 [employer] DATE CREATED AUTHOR AUTHOR'S ORGANIZ ATION 09/12/2022 [facility] DATE CREATED AUTHOR AUTHOR'S ORGANIZ ATION 11/12/2022 [facility] [place] FOR RECORDS PERTAINING TO PATIENTS WHO ARE OR HAVE BEEN ENROLLED IN A CHEMICAL DEPENDENCY/SUBSTANCEABUSE PROGRAM, SOME INFORMATION MAY BE OMITTED. This clinical summary was aggregated from multiple sources. Caution should be exercised in using it in the provision of clinical care. This summary normalizes information from multiple sources, and as a consequence, information in this document may materially change the coding, format and clinical context of patient data. In addition, data may be omitted in some cases. CLINICAL DECISIONS SHOULD BE BASED ON THE PRIMARY CLINICAL RECORDS. [employer] provides no warranty or guarantee of the accuracy or completeness of information in this document.
[2023-07-12 09:24] LABS: Hemoglobin 14.9 g/dL (13.0-16.5); Mean Corp Hgb Conc 33.1 g/dL (32-36); Mean Corpuscular Volume 87.7 fL (80-94); Mean Platelet Vol. 10.1 fl (6.2-12.0); Platelet Count 317 K/mm3 (150-450); RBC Distribution Width SD 41.7 fl (35.1-43.9); Red Blood Count 5.13 M/mm3 (4.6-6.2); White Blood Count 6.9 K/mm3 (4.4-11.0)
[2023-07-12 10:17] LABS: AST(SGOT) 21 U/L (15-37); Alanine Aminotransfer ALT/SGPT 47 U/L (16-61); Albumin, Serum 3.6 g/dL (3.2-5.0); Alkaline Phosphatase 80 U/L (45-117); Anion Gap 6 (5-15); BUN 14 mg/dL (7-18); BUN/Creat Ratio 14.6 RATIO (10-20); Calcium,Total 8.9 mg/dL (8.5-10.1); Chloride 109 mmol/L (98-107); Creatinine, Serum 0.96 mg/dL (0.70-1.30); EST Glomerular Filtration Rate 91 mL/min (>60); Est Glom Filt Rate - Afr Amer 110 mL/min (>60); Globulin 3.7 g/dL (2.2-4.2); Glucose 111 mg/dL (74-106); Potassium 3.9 mmol/L (3.5-5.1); Protein, Total 7.3 g/dL (6.4-8.2); Sodium Level 140 mmol/L (136-145); Thyroid Stim Hormone (TSH) 1.46 uIU/mL (0.358-3.74)
[2023-07-12 11:23] LABS: Microalbumin,Random Urine 20.4 mg/L (NO RANGE EST.); Microalbumin:Creatinine Ratio 7.3 mg/g CRE (<30 mg/g CRE)
[2023-07-21 11:08] LABS: Testosterone, % Free 3.25 % (1.50-4.20); Testosterone, Free 6.96 ng/dL (5.00-21.00); Testosterone, Total 214 ng/dL (264-916)
== END | disposition home or self-care (01) ==
LOC: LAB 08:31
PROVIDERS: PCP Preventive Medicine Occupational Medicine; Referring Provider Preventive Medicine Occupational Medicine; Visit Provider Preventive Medicine Occupational Medicine
DX: R53.83 Other fatigue (principal); I10 Essential (primary) hypertension; R68.82 Decreased libido
CPT/HCPCS: 36415; 80053; 82043; 82570; 84402; 84403; 84443; 85027

== ENCOUNTER → 2023-10-25 | Outpatient (CLI) | payer BC, SELFPAY ==
[2023-10-25 09:57] LABS: PSA,Total- Diagnostic 1.35 ng/mL (0.0-4.0)
== END | disposition home or self-care (01) ==
LOC: LAB 08:49
PROVIDERS: PCP Preventive Medicine Occupational Medicine; Referring Provider Preventive Medicine Occupational Medicine; Visit Provider Preventive Medicine Occupational Medicine
DX: E29.1 Testicular hypofunction (principal); Z79.890 Hormone replacement therapy
CPT/HCPCS: 36415; 84153; 84403

== ENCOUNTER → 2024-02-14 | Outpatient (CLI) | payer BC, SELFPAY ==
[2024-02-21 17:07] LABS: Testosterone, Free 8.03 ng/dL (5.00-21.00); Testosterone, Total 217 ng/dL (264-916)
== END | disposition home or self-care (01) ==
LOC: LAB 10:06
PROVIDERS: PCP Preventive Medicine Occupational Medicine; Referring Provider Preventive Medicine Occupational Medicine; Visit Provider Preventive Medicine Occupational Medicine
DX: E29.1 Testicular hypofunction (principal)
CPT/HCPCS: 36415; 84402; 84403